=== PATIENT | female | born 1965 | race Two or more races ===

== ENCOUNTER 2020-05-11 14:12 | Outpatient (REF) | payer MEDICARE, MEDICAID, SELFPAY ==
[2020-05-11 15:54] LABS: TSH reflex Free T4 0.35 mIU/mL (0.32-4.0)
== END 2020-05-11 14:13 | disposition home or self-care (01) ==
LOC: HO.LAB 14:12
PROVIDERS: PCP Internal Medicine; Visit Provider Internal Medicine
DX: E06.3 Autoimmune thyroiditis (principal)
CPT/HCPCS: 84443

== ENCOUNTER 2020-09-09 15:52 | Outpatient (REF) | payer MEDICARE, MEDICAID, SELFPAY ==
[2020-09-09 16:58] LABS: TSH reflex Free T4 1.03 uIU/mL (0.32-4.0)
== END 2020-09-09 15:53 | disposition home or self-care (01) ==
LOC: HO.LAB 15:52
PROVIDERS: PCP Internal Medicine; Visit Provider Internal Medicine
DX: E03.9 Hypothyroidism, unspecified (principal)
CPT/HCPCS: 36415; 84443

== ENCOUNTER 2020-09-19 10:44 | Outpatient (REF) | payer MEDICARE, MEDICAID, SELFPAY ==
--- NOTE | ~2020-09-19 | XR_ITS ---
EXAMINATION: XR FOOT, RIGHT CLINICAL INFORMATION: Pain in right foot COMPARISON: None TECHNIQUE: AP, lateral, and oblique views of the right foot. FINDINGS: No acute fracture or dislocation. Joint spaces and articular surfaces are maintained. Moderate plantar calcaneal enthesophyte. Soft tissues unremarkable without evidence of radiopaque foreign body. XR/XR foot RT min 3V IMPRESSION: No acute fracture or dislocation. Moderate size plantar calcaneal enthesophyte.
== END 2020-09-19 10:45 | disposition home or self-care (01) ==
LOC: HO.XRAY 10:44
PROVIDERS: PCP Internal Medicine; Visit Provider Internal Medicine
DX: M79.671 Pain in right foot (principal)
CPT/HCPCS: 73630

== ENCOUNTER 2021-01-19 17:25 | Emergency (ER) | payer OTHER, MEDICARE, MEDICAID, SELFPAY ==
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
[2021-01-19 18:36] VITALS: BP 150/84; PULSE 78; RESP 18; TEMP 36.8; O2SAT 100; BMI 28.8
[2021-01-19] MEDS: Ibuprofen 600 MG TABLET PO (20:23)
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
== END 2021-01-20 01:06 | disposition home or self-care (01) ==
PROVIDERS: Emergency Provider Emergency Medicine; PCP Internal Medicine
DX: S13.4XXA Sprain of ligaments of cervical spine, initial encounter (principal); S29.012A Strain of muscle and tendon of back wall of thorax, initial encounter; V43.52XA Car driver injured in collision with other type car in traffic accident, initial encounter; Y93.89 Activity, other specified; Y92.414 Local residential or business street as the place of occurrence of the external cause; Y99.9 Unspecified external cause status
CPT/HCPCS: 72040; 72100; 73030; 99284

== ENCOUNTER 2021-01-24 12:02 | Outpatient (REF) | payer OTHER, SELFPAY ==
--- NOTE | ~2021-01-24 | XR_ITS ---
EXAMINATION: XR THORACOLUMBAR SPINE CLINICAL INFORMATION: Pain COMPARISON: Previous x-ray October 2015 TECHNIQUE: 3 views of the thoracic spine FINDINGS: There is mild curvature of the midthoracic spine to the right and lower thoracic spine to the left. Bone alignment is otherwise normal. No fracture or dislocation is seen. There is mild degenerative spondylosis and degenerative disc disease and the mid and lower thoracic spine, greatest at T11-T12. Paraspinal soft tissues are unremarkable. XR/XR thoracic spine 2V IMPRESSION: No fracture. Mild scoliosis and degenerative changes.
== END 2021-01-24 12:03 | disposition home or self-care (01) ==
LOC: HO.XRAY 12:02
PROVIDERS: PCP Internal Medicine; Visit Provider Internal Medicine
DX: M54.6 Pain in thoracic spine (principal)
CPT/HCPCS: 72070

== ENCOUNTER 2021-03-22 08:40 | Outpatient (REF) | payer MEDICARE, MEDICAID, SELFPAY ==
[2021-03-22 09:25] LABS: Alanine Aminotransferase 24 U/L (0-31); Alkaline Phosphatase 113 U/L (39-117); Anion Gap 10 (12-20); Aspartate Amino Transferase 25 U/L (5-31); Bilirubin Total 0.3 mg/dL (0.0-1.0); Blood Urea Nitrogen 12 mg/dL (9-16); Calcium 9.2 mg/dL (8.4-10.2); Carbon Dioxide 26 mmol/L (22-29); Chloride 109 mmol/L (96-108); Cholesterol 176 mg/dL; Estimated Glomerular Filt Rate > 60; Glucose Fasting 98 mg/dL (60-99); HDL Cholesterol 77 mg/dL; LDL Cholesterol Calculated 90 mg/dl; Potassium 4.1 mmol/L (3.3-5.1); Sodium 141 mmol/L (135-145); Total Protein 6.3 g/dL (6.5-8.0); Triglycerides 48 mg/dL
[2021-03-22 10:29] LABS: TSH reflex Free T4 0.68 uIU/mL (0.32-4.0)
[2021-03-28 14:41] LABS: Vitamin D 25-OH, D2 <4 ng/mL; Vitamin D 25-OH, D3 25 ng/mL; Vitamin D 25-OH, Total 25 ng/mL (30-100)
== END 2021-03-22 08:41 | disposition home or self-care (01) ==
LOC: HO.LAB 08:40
PROVIDERS: PCP Internal Medicine; Visit Provider Internal Medicine
DX: E78.5 Hyperlipidemia, unspecified (principal); M51.36 Other intervertebral disc degeneration, lumbar region; E06.3 Autoimmune thyroiditis; E55.9 Vitamin D deficiency, unspecified
CPT/HCPCS: 36415; 80053; 80061; 82306; 84443

== ENCOUNTER 2021-10-16 11:44 | Outpatient (REF) | payer MEDICARE, MEDICAID, SELFPAY ==
[2021-10-16 12:56] LABS: Syphilis Screen Nonreactive (Nonreactive)
[2021-10-16 13:01] LABS: Erythrocyte Sedimentation Rate 18 MM/HR (0-20)
[2021-10-18 01:51] LABS: Lyme Abs Screen <0.90 index
== END 2021-10-16 11:45 | disposition home or self-care (01) ==
LOC: HO.LAB 11:44
PROVIDERS: PCP Internal Medicine; Visit Provider Psychiatry & Neurology Neurology
DX: R51.9 Headache, unspecified (principal)
CPT/HCPCS: 36415; 85652; 86617; 86618; 86780

== ENCOUNTER 2021-11-29 15:52 | Outpatient (REF) | payer MEDICARE, MEDICAID, SELFPAY ==
[2021-11-29 17:33] LABS: Thyroid Stimulating Hormone 1.46 uIU/mL (0.32-4.0)
== END 2021-11-29 15:53 | disposition home or self-care (01) ==
LOC: HO.LAB 15:52
PROVIDERS: PCP Internal Medicine; Visit Provider Internal Medicine
DX: E06.3 Autoimmune thyroiditis (principal)
CPT/HCPCS: 36415; 84443

== ENCOUNTER 2022-03-20 08:58 | Outpatient (REF) | payer MEDICARE, MEDICAID, SELFPAY ==
[2022-03-20 09:17] LABS: MANUAL DIFF FLAG NO
[2022-03-20 09:37] LABS: Basophils Percent Auto 0.7 % (0-2); Eosinophils Absolute Auto 0.1 X10*3/uL (0.0-0.4); Eosinophils Percent Auto 3.1 % (0-4); Hematocrit 37.3 % (37.0-47.0); Hemoglobin 11.8 g/dl (12.0-16.0); Imm Gran Abs Auto 0.01 X10*3/uL (0.00-0.03); Imm Gran Pct Auto 0.2 % (0.0-0.4); Lymphocytes Absolute Auto 2.3 X10*3/uL (1.2-4.9); Mean Corpuscular HGB Conc 31.6 g/dl (31.0-35.0); Mean Corpuscular Hemoglobin 28.2 pg (27.0-33.0); Mean Corpuscular Volume 89.2 fL (80.0-98.0); Mean Platelet Volume 11.3 fL (9.4-12.3); Monocytes Absolute Auto 0.3 X10*3/uL (0.1-1.2); Monocytes Percent Auto 5.9 % (2-11); Neutrophils Absolute Auto 1.8 x10*3/uL (2.0-8.3); Neutrophils Percent Auto 39.1 % (45-73); Platelet Count 187 X10*3/uL (160-400); Red Blood Count 4.18 X10*6/uL (4.20-5.50); Red Cell Distribution Width 14.3 % (11.0-16.0); White Blood Count 4.6 X10*3/uL (4.8-10.8)
[2022-03-20 10:11] LABS: Alanine Aminotransferase 18 U/L (0-31); Albumin Level 4.2 g/dL (3.5-5.0); Alkaline Phosphatase 114 U/L (39-117); Anion Gap 12 (12-20); Aspartate Amino Transferase 23 U/L (5-31); Bilirubin Total 0.6 mg/dL (0.0-1.0); Blood Urea Nitrogen 17 mg/dL (9-16); Calcium 9.5 mg/dL (8.4-10.2); Carbon Dioxide 22 mmol/L (22-29); Chloride 111 mmol/L (96-108); Cholesterol 189 mg/dL; Estimated Glomerular Filt Rate > 60; Glucose Fasting 83 mg/dL (60-99); HDL Cholesterol 88 mg/dL; LDL Cholesterol Calculated 93 mg/dl; Potassium 4.4 mmol/L (3.3-5.1); Sodium 141 mmol/L (135-145); Total Protein 6.6 g/dL (6.5-8.0); Triglycerides 40 mg/dL
[2022-03-20 10:26] LABS: Thyroid Stimulating Hormone 1.32 uIU/mL (0.32-4.0); Vitamin D 25-OH Total 27.2 ng/mL (>30)
== END 2022-03-20 08:59 | disposition home or self-care (01) ==
LOC: HO.LAB 08:58
PROVIDERS: PCP Internal Medicine; Visit Provider Internal Medicine
DX: E55.9 Vitamin D deficiency, unspecified (principal); G43.909 Migraine, unspecified, not intractable, without status migrainosus; E06.3 Autoimmune thyroiditis; E78.5 Hyperlipidemia, unspecified
CPT/HCPCS: 36415; 80053; 80061; 82306; 84443; 85025

== ENCOUNTER 2022-05-16 10:00 | Outpatient (REF) | payer MEDICARE, MEDICAID, SELFPAY ==
--- NOTE | ~2022-05-16 | MM_ITS ---
EXAMINATION: MM SCREENING DIGITAL BREAST TOMOSYNTHESIS, BILATERAL CLINICAL INFORMATION: Screening. Asymptomatic. COMPARISON: Mammography: 12/18/2017, 07/27/2016, 07/17/2016 TECHNIQUE: Digital breast tomosynthesis is performed in both the craniocaudal and mediolateral oblique views along with computer-aided detection (CAD). Synthesized 2D images are generated from the tomosynthesis. FINDINGS: The breasts are heterogeneously dense, which may obscure small masses (ACR BI-RADS breast composition Category c). There are no significant masses, abnormal calcifications, or other abnormalities. Parenchymal pattern is similar to prior studies. No developing density or architectural abnormality. No significant changes. MM/MM tomosynthesis screening BI IMPRESSION: No mammographic evidence of malignancy. ASSESSMENT: BI-RADS 1: Negative RECOMMENDATION: Routine annual mammography screening. This patient's information was entered into a reminder system with a target due date for their next mammogram.
== END 2022-05-16 10:01 | disposition home or self-care (01) ==
LOC: HO.MAMMO 10:00
PROVIDERS: PCP Internal Medicine; Visit Provider Internal Medicine
DX: Z12.31 Encounter for screening mammogram for malignant neoplasm of breast (principal)
CPT/HCPCS: 77063; 77067

== ENCOUNTER 2022-07-26 09:08 | Outpatient (REF) | payer MEDICARE, MEDICAID, SELFPAY ==
[2022-07-26 09:16] LABS: MANUAL DIFF FLAG NO
[2022-07-26 09:29] LABS: Basophils Absolute Auto 0.1 X10*3/uL (0.0-0.2); Basophils Percent Auto 0.9 % (0-2); Eosinophils Absolute Auto 0.1 X10*3/uL (0.0-0.4); Eosinophils Percent Auto 2.1 % (0-4); Hematocrit 37.7 % (37.0-47.0); Hemoglobin 11.8 g/dl (12.0-16.0); Imm Gran Abs Auto 0.01 X10*3/uL (0.00-0.03); Imm Gran Pct Auto 0.2 % (0.0-0.4); Lymphocytes Absolute Auto 1.9 X10*3/uL (1.2-4.9); Lymphocytes Percent Auto 35.8 % (20-40); Mean Corpuscular HGB Conc 31.3 g/dl (31.0-35.0); Mean Corpuscular Hemoglobin 28.2 pg (27.0-33.0); Mean Platelet Volume 11.5 fL (9.4-12.3); Monocytes Absolute Auto 0.3 X10*3/uL (0.1-1.2); Neutrophils Absolute Auto 2.9 x10*3/uL (2.0-8.3); Platelet Count 203 X10*3/uL (160-400); Red Blood Count 4.19 X10*6/uL (4.20-5.50); Red Cell Distribution Width 14.4 % (11.0-16.0); White Blood Count 5.3 X10*3/uL (4.8-10.8)
[2022-07-26 10:17] LABS: Thyroid Stimulating Hormone 1.46 uIU/mL (0.32-4.0)
== END 2022-07-26 09:09 | disposition home or self-care (01) ==
LOC: HO.LAB 09:08
PROVIDERS: PCP Internal Medicine; Visit Provider Internal Medicine
DX: E06.3 Autoimmune thyroiditis (principal); D64.9 Anemia, unspecified
CPT/HCPCS: 36415; 84443; 85025

== ENCOUNTER 2022-09-18 09:04 | Emergency (ER) | payer MEDICARE, MEDICAID, SELFPAY ==
--- NOTE | ~2022-09-18 | XR_ITS ---
EXAMINATION: XR CHEST CLINICAL INFORMATION: Chest and back pain. COMPARISON: None available. TECHNIQUE: 2 views of the chest were obtained. FINDINGS: No significant abnormality is noted involving the heart, lungs, mediastinum, bony thorax or soft tissues. XR/XR chest 2V IMPRESSION: No acute cardiopulmonary process.
--- NOTE | 2022-09-18 09:09 | ECG_ITS ---
Test Reason : CP Blood Pressure : / mmHG Vent. Rate : 064 BPM Atrial Rate : 064 BPM P-R Int : 146 ms QRS Dur : 072 ms QT Int : 386 ms P-R-T Axes : 067 011 038 degrees QTc Int : 398 ms Normal sinus rhythm Normal ECG When compared with ECG of 17-JAN-2016 18:06, No significant change was found Referred By: Generic ED Physician Electronically Signed By:DAMIAN CROUCH MD
[2022-09-18 09:10] VITALS: BP 140/76; PULSE 69; RESP 19; TEMP 36.1; O2SAT 96; BMI 27.4
[2022-09-18 09:49] LABS: MANUAL DIFF FLAG NO
[2022-09-18 09:51] LABS: Basophils Percent Auto 0.8 % (0-2); Eosinophils Absolute Auto 0.1 X10*3/uL (0.0-0.4); Eosinophils Percent Auto 2.3 % (0-4); Hematocrit 38.9 % (37.0-47.0); Hemoglobin 12.2 g/dl (12.0-16.0); Imm Gran Abs Auto 0.01 X10*3/uL (0.00-0.03); Imm Gran Pct Auto 0.2 % (0.0-0.4); Lymphocytes Percent Auto 40.7 % (20-40); Mean Corpuscular HGB Conc 31.4 g/dl (31.0-35.0); Mean Corpuscular Volume 89.4 fL (80.0-98.0); Mean Platelet Volume 11.5 fL (9.4-12.3); Monocytes Absolute Auto 0.3 X10*3/uL (0.1-1.2); Monocytes Percent Auto 6.9 % (2-11); Neutrophils Absolute Auto 2.4 x10*3/uL (2.0-8.3); Neutrophils Percent Auto 49.1 % (45-73); Platelet Count 191 X10*3/uL (160-400); Red Blood Count 4.35 X10*6/uL (4.20-5.50); Red Cell Distribution Width 14.2 % (11.0-16.0); White Blood Count 4.8 X10*3/uL (4.8-10.8)
[2022-09-18 09:53] VITALS: BP 128/74; PULSE 73; RESP 17; O2SAT 99
--- NOTE | 2022-09-18 09:59 | PC.NURSE ---
Patient resting on stretcher. Stating that she has had pain for the few weeks and started to get chest pain as well. Called PCP who advised her to come in to ED to be evaluated. Pain is in the lower back and substernally; patient having no shortness of breath associated with the pain.
[2022-09-18 10:16] LABS: Alanine Aminotransferase 29 U/L (0-31); Albumin Level 4.1 g/dL (3.5-5.0); Alkaline Phosphatase 121 U/L (39-117); Anion Gap 11 (12-20); Aspartate Amino Transferase 30 U/L (5-31); Bilirubin Direct 0.2 mg/dL (0.0-0.5); Bilirubin Total 0.6 mg/dL (0.0-1.0); Blood Urea Nitrogen 18 mg/dL (9-16); Calcium 9.2 mg/dL (8.4-10.2); Carbon Dioxide 23 mmol/L (22-29); Chloride 111 mmol/L (96-108); Creatinine Clr Calc Pharmacy 91.5; Estimated Glomerular Filt Rate > 60; Glucose Random 86 mg/dL (60-115); Lipase 28 U/L (8-78); Potassium 4.6 mmol/L (3.3-5.1); Sodium 140 mmol/L (135-145); Total Protein 6.6 g/dL (6.5-8.0)
[2022-09-18 10:25] LABS: Troponin-I High Sensitivity < 3.5 ng/L (<3.5-17.0)
--- NOTE | 2022-09-18 10:30 | ED_ITS ---
HPI - General Adult General Chief complaint: General Medical Stated complaint: chest pain/ back pain Time Seen by Provider: 09/18/22 10:11 Source: patient Mode of arrival: ambulatory Limitations: no limitations History of Present Illness HPI narrative: 57-year-old female with history of hypothyroidism, GERD who presents to the ER with complaints of acute on chronic back pain for the last 3 weeks. Patient reports she was shoveling last week and felt pain in her left chest. Since then she has had pain in both her left chest and her left upper back. Patient denies any associated shortness of breath, dizziness, palpitations, fever, cough, leg swelling, leg pain. No recent illnesses. No vomiting or diarrhea or abdominal pain. Pain is worsened with palpation and breathing. Pain not worsened with exertion. No OCP or estrogen use. Related Data Previous Rx's Medication Instructions Recorded sumatriptan succinate 50 mg tablet 50 mg PO BID PRN migraine headache 07/05/21 30 days #12 tabs omeprazole 40 mg capsule,delayed 40 mg PO DAILY 90 days #90 caps 11/30/21 release duloxetine 30 mg capsule,delayed 60 mg PO DAILY 90 days #180 caps 03/27/22 release topiramate 50 mg tablet 50 mg PO BID 90 days #180 tabs 03/27/22 tramadol 50 mg tablet 50 mg PO DAILY 30 days #30 tabs 03/27/22 levothyroxine 112 mcg tablet 112 mcg PO QAM #90 tabs 07/10/22 naproxen 500 mg tablet 500 mg PO Q12H PRN pain 90 days 08/12/22 #180 tabs baclofen 10 mg tablet 10 mg PO TID #90 tabs 09/17/22 cyclobenzaprine 10 mg tablet 10 mg PO TID PRN muscle spasm #15 09/18/22 tabs ibuprofen 600 mg tablet 600 mg PO Q8H PRN pain #30 tabs 09/18/22 Allergies Allergy/AdvReac Type Severity Reaction Status Date / Time No Known Allergies Allergy Verified 08/02/22 10:24 [No Known Allergies*] Review of Systems Review of Systems: Yes all other systems are reviewed and are negative Constitutional: Constitutional: Reports no additional constitutional complaints, Denies body ache(s), Denies chills, Denies fever(s), Denies headache(s) and Denies weakness Eyes: Eyes: Reports no additional eye complaints and Denies change in vision ENT: Reports system reviewed and no additional complaints, except as documented, Denies dizziness, Denies headache(s), Denies nasal congestion, Denies nasal discharge and Denies neck pain Cardiovascular: Cardiovascular: Reports no additional cardiovascular complaints, Reports chest pain, Denies leg edema and Denies dyspnea Respiratory: Respiratory: Reports no additional respiratory complaints, Denies cough and Denies dyspnea Gastrointestinal: Gastrointestinal: Reports no additional gastrointestinal complaints, Denies abdominal pain, Denies diarrhea, Denies nausea and Denies vomiting Genitourinary: Genitourinary: Reports no additional female genitourinary complaints and Denies urinary incontinence Musculoskeletal: Musculoskeletal: Reports no additional musculoskeletal complaints, Reports back pain, Denies arthralgias, Denies joint swelling, Denies neck pain, Denies numbness and Denies tingling Integumentary/Breasts: Skin/Breast: Reports system reviewed and no additional complaints, except as docu and Denies rash Neurologic: Reports system reviewed and no additional complaints, except as do cumented, Denies dizziness, Denies headache(s), Denies numbness, Denies tingling and Denies weakness [facility] Past Medical History Attestation statement: The following information was validated with the patient. Source: old records reviewed and nursing notes reviewed Medical History Autoimmune thyroiditis GERD (gastroesophageal reflux disease) Left shoulder pain Lumbar degenerative disc disease Migraines Mild recurrent major depression Neck pain Right foot pain Thoracic spine pain Surgical History History of laminectomy History of tonsillectomy History of tubal ligation Family History Family History Father Heart problem CVD (cardiovascular disease) Mother Heart problem Acute kidney failure Hypertension CVD (cardiovascular disease) Sister Hypertension Brother Heart problem Social History Social History Housing: Apartment Alcohol intake: current Alcohol intake frequency: holidays/special occasions only Alcohol type: beer Patient Tobacco Use Status: Current everyday Tobacco user Tobacco use type: Cigarette Cigarettes Per Day: 4 Smoked in Last 30 Days: Yes e-Cigarette/Vaping Use: Never Used Second Hand Smoke Exposure: No Use of substances other than those prescribed or required for medical reasons: No Advance Directives: No Advance Directives Information Provided: Yes service: No Current occupational status: disabled Cognitive needs: No Hearing needs: No Vision needs: No Physical Exam ED Vital Signs: Vital Signs - 24 hr 09/18/22 09:10 09/18/22 09:53 09/18/22 13:06 Temperature 97 F Pulse Rate 69 73 61 Respiratory Rate 19 17 18 Blood Pressure 140/76 H 128/74 136/80 Pulse Oximetry 96 99 100 Oxygen Delivery Method Room Air Room Air Room Air BMI result Body Mass Index 27.4 Const General: cooperative, healthy appearing, comfortable and no acute distress Orientation/consciousness: patient oriented x3 Limitations: no limitations HENMT Head: Yes normal to inspection Ears: hearing grossly normal bilaterally Eyes General: appearance normal, both eyes and all related structures Pupils: Equal, round and reactive pupils present Neck Neck: Yes normal visual inspection and Yes full ROM Chest Chest palpation & inspection: normal inspection of the chest Chest/axillae images: 1. Tenderness on palpation Resp Effort & Inspection: normal respiratory effort Auscultation: clear to auscultation bilaterally Cardio Rate: regular rate Rhythm: regular rhythm Peripheral pulses: Peripheral pulses 2+ throughout GI Inspection: Yes normal to inspection Palpation (GI): Soft to palpation and nontender General: Yes no CVA tenderness Back/Spine/Pelvis Back: no CVA tenderness Back/spine/pelvis image: 1. Mild tenderness to palpation Skin General skin exam: no rashes or lesions noted Neuro General: patient oriented x3 and moves all extremities Cranial nerves: Yes Equal, round and reactive pupils present Cognition (Neuro): normal cognition Gait exam (Neuro): Normal gait present Extrem General: Yes normal to inspection, Yes no pedal edema and Yes no calf tenderness Course Course Course Narrative: Labs are unremarkable. EKG shows no ischemic changes. Chest x-ray is negative for infection. Low concern for ACS with symptoms for several weeks with a normal troponin and EKG. Low concern for PE with negative D-dimer, perc of 0. Low concern for dissection. Likely chest wall strain. Plan for discharge home. Reviewed worrisome signs and symptoms of when to return to the emergency room. Comfortable plan for discharge home Medications Administered Discontinued Medications Generic Name Dose Route Start Last Admin Trade Name Freq PRN Reason Stop Dose Admin Ketorolac Tromethamine 15 mg 09/18/22 10:28 09/18/22 10:51 Ketorolac Tromethamine 15 Mg/Ml Vial IVPUSH 09/18/22 10:29 15 mg ONCE ONE Administration Medical Decision Making Medical Decision Making [facility] Narrative: 57-year-old female with a history of GERD, chronic back pain, hypothyroidism, tobacco smoking presents to the ER with acute on chronic back pain for the last 3 weeks with left chest discomfort which began after shoveling snow last week. Pain is worsened with palpation and breathing. Not exertional. No other associated symptoms. On exam tenderness to palpation of the left chest wall and left upper back. Likely musculoskeletal. Will obtain labs, EKG, chest X, COVID screen Differential Diagnosis Differential Diagnoses: The differential diagnosis associated with the presentation includes Chest wall strain, PE, ACS, pneumonia, dissect Lab Data [facility] Lab Attestation statement: I reviewed the patient's lab results. 09/18/22 09:42 09/18/22 09:42 Labs: Lab Results 09/18/22 09/18/22 09/18/22 Range/Units 09:41 09:42 09:42 WBC 4.8 (4.8-10.8) X10*3/uL RBC 4.35 (4.20-5.50) X10*6/uL Hgb 12.2 (12.0-16.0) g/dl Hct 38.9 (37.0-47.0) % MCV 89.4 (80.0-98.0) fL MCH 28.0 (27.0-33.0) pg MCHC 31.4 (31.0-35.0) g/dl RDW 14.2 (11.0-16.0) % Plt Count 191 (160-400) X10*3/uL MPV 11.5 (9.4-12.3) fL Immature Gran % (Auto) 0.2 (0.0-0.4) % Neut % (Auto) 49.1 (45-73) % Lymph % (Auto) 40.7 H (20-40) % Jennings % (Auto) 6.9 (2-11) % Eos % (Auto) 2.3 (0-4) % Baso % (Auto) 0.8 (0-2) % Lymph # (Auto) 2.0 (1.2-4.9) X10*3/uL Jennings # (Auto) 0.3 (0.1-1.2) X10*3/uL Eos # (Auto) 0.1 (0.0-0.4) X10*3/uL Baso # (Auto) 0.0 (0.0-0.2) X10*3/uL Abs Immat Gran (auto) 0.01 (0.00-0.03) X10*3/uL Absolute Neuts (auto) 2.4 (2.0-8.3) x10*3/uL Absolute Nucleated RBC 0.000 (0.0-0.012) X10*3/uL Nucleated RBC % (auto) 0.0 (0.0-0.2) /100WBC PT (10.0-13.1) SEC INR (0.9-1.1) D-Dimer High Sensitivty NG/ML Sodium 140 (135-145) mmol/L Potassium 4.6 (3.3-5.1) mmol/L Chloride 111 H (96-108) mmol/L Carbon Dioxide 23 (22-29) mmol/L Anion Gap 11 L (12-20) BUN 18 H (9-16) mg/dL Creatinine 0.67 (0.5-1.4) mg/dL Estim Creat Clear Calc 91.5 Estimated GFR > 60 Random Glucose 86 (60-115) mg/dL Calcium 9.2 (8.4-10.2) mg/dL Total Bilirubin 0.6 (0.0-1.0) mg/dL Direct Bilirubin 0.2 (0.0-0.5) mg/dL AST 30 (5-31) U/L ALT 29 (0-31) U/L Alkaline Phosphatase 121 H (39-117) U/L Troponin I High Sens < 3.5 (<3.5-17.0) ng/L Total Protein 6.6 (6.5-8.0) g/dL Albumin 4.1 (3.5-5.0) g/dL Lipase 28 (8-78) U/L COVID-19 ([facility]) (Negative) COVID-19 Clin Com 09/18/22 09/18/22 Range/Units 11:28 11:28 WBC (4.8-10.8) X10*3/uL RBC (4.20-5.50) X10*6/uL Hgb (12.0-16.0) g/dl Hct (37.0-47.0) % MCV (80.0-98.0) fL MCH (27.0-33.0) pg MCHC (31.0-35.0) g/dl RDW (11.0-16.0) % Plt Count (160-400) X10*3/uL MPV (9.4-12.3) fL Immature Gran % (Auto) (0.0-0.4) % Neut % (Auto) (45-73) % Lymph % (Auto) (20-40) % Jennings % (Auto) (2-11) % Eos % (Auto) (0-4) % Baso % (Auto) (0-2) % Lymph # (Auto) (1.2-4.9) X10*3/uL Jennings # (Auto) (0.1-1.2) X10*3/uL Eos # (Auto) (0.0-0.4) X10*3/uL Baso # (Auto) (0.0-0.2) X10*3/uL Abs Immat Gran (auto) (0.00-0.03) X10*3/uL Absolute Neuts (auto) (2.0-8.3) x10*3/uL Absolute Nucleated RBC (0.0-0.012) X10*3/uL Nucleated RBC % (auto) (0.0-0.2) /100WBC PT 11.8 (10.0-13.1) SEC INR 1.0 (0.9-1.1) D-Dimer High Sensitivty < 150 NG/ML Sodium (135-145) mmol/L Potassium (3.3-5.1) mmol/L Chloride (96-108) mmol/L Carbon Dioxide (22-29) mmol/L Anion Gap (12-20) BUN (9-16) mg/dL Creatinine (0.5-1.4) mg/dL Estim Creat Clear Calc Estimated GFR Random Glucose (60-115) mg/dL Calcium (8.4-10.2) mg/dL Total Bilirubin (0.0-1.0) mg/dL Direct Bilirubin (0.0-0.5) mg/dL AST (5-31) U/L ALT (0-31) U/L Alkaline Phosphatase (39-117) U/L Troponin I High Sens (<3.5-17.0) ng/L Total Protein (6.5-8.0) g/dL Albumin (3.5-5.0) g/dL Lipase (8-78) U/L COVID-19 ([facility]) Negative (Negative) COVID-19 Clin Com See Note Independent Interpretation I performed an independent interpretation of an: EKG and Plain X-Ray Interpretation: I independently reviewed the EKG which she which shows normal sinus rhythm with a rate of 64, normal CO, normal QRS, normal QT I independently reviewed the chest x-ray and agree with radiologist's report Radiology Impression Discussion of test interpretation with radiology: I have reviewed the radiologist's reading. Discharge Plan Discharge Clinical Impression: Chest wall muscle strain Patient Disposition: Home, Self-Care Instructions: Muscle Strain (ED), Chest Wall Pain (ED) Additional Instructions: Your blood work, EKG and chest x-ray are all reassuring Your COVID test is negative Please follow-up with primary care doctor for any continued symptoms Return to the ER for any worsening symptoms Prescriptions: New cyclobenzaprine 10 mg tablet 10 mg PO TID PRN (Reason: muscle spasm) Qty: 15 0RF ibuprofen 600 mg tablet 600 mg PO Q8H PRN (Reason: pain) Qty: 30 0RF No Action sumatriptan succinate 50 mg tablet 50 mg PO BID PRN (Reason: migraine headache) 30 Days Qty: 12 2RF duloxetine 30 mg capsule,delayed release(DR/EC) 60 mg PO DAILY 90 Days Qty: 180 3RF tramadol 50 mg tablet 50 mg PO DAILY 30 Days Qty: 30 0RF topiramate 50 mg tablet 50 mg PO BID 90 Days Qty: 180 0RF levothyroxine 112 mcg tablet 112 mcg PO QAM Qty: 90 1RF naproxen 500 mg tablet 500 mg PO Q12H PRN (Reason: pain) 90 Days Qty: 180 0RF baclofen 10 mg tablet 10 mg PO TID Qty: 90 3RF omeprazole 40 mg capsule,delayed release(DR/EC) 40 mg PO DAILY 90 Days Qty: 90 3RF Referrals: Kathrine España MD [Primary Care Provider] - 1 week Interventions: ED Discharge Assessment Last Done: 09/18/22 13:08 Discharge Date/Time: 09/18/22 13:08
[2022-09-18] MEDS: Ketorolac Tromethamine 15 MG/ML VIAL IVPUSH (10:51)
[2022-09-18 11:38] LABS: Prothrombin Time 11.8 SEC (10.0-13.1)
[2022-09-18 11:47] LABS: D Dimer High Sensitivity < 150 NG/ML
[2022-09-18 11:48] LABS: COVID-19 Test Negative (Negative); IDNOW Serial# 08D9AD1C
[2022-09-18 13:06] VITALS: BP 136/80; PULSE 61; RESP 18; O2SAT 100
== END 2022-09-18 13:08 | disposition home or self-care (01) ==
PROVIDERS: Nurse Practitioner Family; Emergency Provider Emergency Medicine; PCP Internal Medicine
DX: R07.89 Other chest pain (principal); M54.2 Cervicalgia; Z20.822 Contact with and (suspected) exposure to COVID-19; Z20.828 Contact with and (suspected) exposure to other viral communicable diseases; Z79.899 Other long term (current) drug therapy
CPT/HCPCS: 36415; 71046; 80048; 80076; 83690; 84484; 85025; 85379; 85610; 87635; 93005; 96374; 99284; J1885

== ENCOUNTER 2022-11-29 13:32 | Outpatient (REF) | payer MEDICARE, MEDICAID, SELFPAY ==
[2022-11-29 15:31] LABS: Thyroid Stimulating Hormone 1.47 uIU/mL (0.32-4.0)
== END 2022-11-29 13:33 | disposition home or self-care (01) ==
LOC: HO.LAB 13:32
PROVIDERS: PCP Internal Medicine; Visit Provider Internal Medicine
DX: E06.3 Autoimmune thyroiditis (principal)
CPT/HCPCS: 36415; 84443

== ENCOUNTER 2023-03-26 08:50 | Outpatient (REF) | payer MEDICARE, MEDICAID, SELFPAY ==
[2023-03-26 09:11] LABS: MANUAL DIFF FLAG NO
[2023-03-26 09:53] LABS: Basophils Percent Auto 0.7 % (0-2); Eosinophils Absolute Auto 0.2 X10*3/uL (0.0-0.4); Eosinophils Percent Auto 3.3 % (0-4); Hematocrit 40.6 % (37.0-47.0); Hemoglobin 12.7 g/dl (12.0-16.0); Imm Gran Abs Auto 0.01 X10*3/uL (0.00-0.03); Imm Gran Pct Auto 0.2 % (0.0-0.4); Lymphocytes Absolute Auto 1.8 X10*3/uL (1.2-4.9); Lymphocytes Percent Auto 39.7 % (20-40); Mean Corpuscular HGB Conc 31.3 g/dl (31.0-35.0); Mean Corpuscular Hemoglobin 28.5 pg (27.0-33.0); Mean Platelet Volume 11.6 fL (9.4-12.3); Monocytes Absolute Auto 0.3 X10*3/uL (0.1-1.2); Monocytes Percent Auto 5.7 % (2-11); Neutrophils Absolute Auto 2.3 x10*3/uL (2.0-8.3); Neutrophils Percent Auto 50.4 % (45-73); Platelet Count 204 X10*3/uL (160-400); Red Blood Count 4.46 X10*6/uL (4.20-5.50); Red Cell Distribution Width 14.3 % (11.0-16.0); White Blood Count 4.6 X10*3/uL (4.8-10.8)
[2023-03-26 10:12] LABS: Alanine Aminotransferase 15 U/L (0-31); Albumin Level 4.3 g/dL (3.5-5.0); Alkaline Phosphatase 111 U/L (39-117); Anion Gap 15 (12-20); Aspartate Amino Transferase 18 U/L (5-31); Bilirubin Total 0.5 mg/dL (0.0-1.0); Blood Urea Nitrogen 17 mg/dL (9-16); Calcium 9.5 mg/dL (8.4-10.2); Carbon Dioxide 20 mmol/L (22-29); Chloride 113 mmol/L (96-108); Cholesterol 201 mg/dL (<200); Estimated Glomerular Filt Rate > 60; Glucose Fasting 98 mg/dL (60-99); HDL Cholesterol 93 mg/dL (>40); LDL Cholesterol Calculated 98 mg/dL (<100); Potassium 4.7 mmol/L (3.3-5.1); Sodium 143 mmol/L (135-145); Triglycerides 51 mg/dL (<150)
[2023-03-26 10:31] LABS: Thyroid Stimulating Hormone 1.97 uIU/mL (0.32-4.0)
== END 2023-03-26 08:51 | disposition home or self-care (01) ==
LOC: HO.LAB 08:50
PROVIDERS: PCP Internal Medicine; Visit Provider Internal Medicine
DX: Z00.00 Encounter for general adult medical examination without abnormal findings (principal); G43.909 Migraine, unspecified, not intractable, without status migrainosus; E06.3 Autoimmune thyroiditis; E78.5 Hyperlipidemia, unspecified
CPT/HCPCS: 36415; 80053; 80061; 84443; 85025

== ENCOUNTER 2023-04-03 09:19 | Outpatient (AMB) | payer MEDICARE, MEDICAID, SELFPAY ==
[2023-04-03 09:21] VITALS: BP 122/80; BMI 29.0
--- NOTE | 2023-04-03 09:21 | MHC.PC.OV ---
Vital Signs 04/03/23 09:21 Height 5 ft 4 in Weight 169 lb BMI 29.0 BP 122/80 Blood Pressure Location Lt brachial Position Sitting Intake Visit Reasons: Annual Exam Intake Note: Patient here for an annual physical exam Balloon Dipper Required: No Accompanied by: Self / Same As Patient Allergies No Known Allergies [No Known Allergies*] Allergy (Verified 04/03/23 09:32) Medication List - Last Reconciled 04/03/23 by Kathrine Zeng MD baclofen 10 mg PO TID duloxetine 60 mg (2 x 30 mg) PO DAILY 90 days ibuprofen 600 mg PO Q8H PRN levothyroxine 112 mcg PO QAM naproxen 500 mg PO Q12H PRN 90 days omeprazole 40 mg PO DAILY 90 days sumatriptan succinate 50 mg PO BID PRN 30 days topiramate 50 mg PO BID 90 days tramadol 50 mg PO DAILY 30 days Tobacco use date assessed: 08/02/22 Dental Screening Dental Screen Date: 04/03/23 Did you have a dental visit in the last 12 months?: Yes Did you have a dental problem in the last 6 months where you did not have access to dental care?: No Was dental information given to patient?: Patient has dentist HPI HPI Comments History of Present Illness Details This is a 58-year-old woman with mild recurrent major depression that comes for her physical exam. Depression stable with duloxetine. Last mammogram was last year and was normal. She declines Pap smear and colonoscopy but is willing to do Cologuard. Complains of some hair loss and weight gain due to increase in appetite but her TSH is normal. Has elevated cholesterol but her [place] risk score is 1.9% chance of having a heart attack or stroke in the next 10 years. [facility] Medical History (Updated 12/03/22 @ 11:58 by Kathrine Zeng MD) Mild recurrent major depression Thoracic spine pain Left shoulder pain Neck pain Migraines Right foot pain GERD (gastroesophageal reflux disease) Lumbar degenerative disc disease Autoimmune thyroiditis Surgical History History of laminectomy History of tubal ligation History of tonsillectomy Family History Father Heart problem CVD (cardiovascular disease) Mother Heart problem Acute kidney failure Hypertension CVD (cardiovascular disease) Sister Hypertension Brother Heart problem Social History Housing: Apartment Alcohol intake: current Alcohol intake frequency: holidays/special occasions only Alcohol type: beer Patient Tobacco Use Status: Current everyday Tobacco user Tobacco use type: Cigarette Cigarettes Per Day: 4 e-Cigarette/Vaping Use: Never Used Second Hand Smoke Exposure: No service: No Current occupational status: disabled Cognitive needs: No Hearing needs: No Vision needs: No Questionnaire Thrive Questionnaire Date Thrive assessed: 08/02/22 VICENTE-7 AMB Questionnaire VICENTE-7 Date VICENTE - 7 assessed: 08/02/22 Source: Developed by Drs. David Perry, Lissett Long, Dayo Salgado and colleagues, with an educational maurice from [employer]. Review of Systems Const All systems reviewed & are unremarkable except as noted in HPI and below Eyes Reports no additional complaints, Denies change in vision and Denies other visual disturbances Card Denies chest pain at rest, Denies chest pain with activity, Denies edema, Denies irregular heart rhythm, Denies claudication, Denies dyspnea, Denies dyspnea on exertion, Denies orthopnea, Denies paroxysmal nocturnal dyspnea and Denies slow heart rate Resp Denies cough, Denies dyspnea and Denies dyspnea on exertion GI Denies abdominal pain, Denies change in bowel habits, Denies excessive flatus, Denies nausea and Denies vomiting Denies urinary incontinence, Denies urinary hesitancy and Denies urinary urgency Musc Denies abnormal gait, Denies atrophy, Denies deformity and Denies limited range of motion Skin/Breast Denies bleeding lesions, Denies changing lesions and Denies rash Neuro Denies abnormal gait and Denies lack of coordination Physical exam (Primary Care) Vital Signs: Last Vital Signs BP 122/80 04/03/23 09:21 BMI result Body Mass Index 29.0 Tobacco/Smoking Status: Tobacco use Status Tobacco use date assessed 08/02/22 04/03/23 09:23 Patient Tobacco Use Status Current everyday Tobacco 04/03/23 09:23 Tobacco use type Cigarette 04/03/23 09:23 e-Cigarette/Vaping Use Never Used 04/03/23 09:23 Thrive Assessment: Date of Thrive Assessment Date Thrive assessed 08/02/22 04/03/23 09:23 Const Orientation/consciousness: patient oriented x3 HENMT Head: Yes normal to inspection, Yes normocephalic and Yes atraumatic Ears: external ears normal Eyes General: appearance normal, both eyes and all related structures Eyelids: Yes eyelids normal Conjunctivae: conjunctivae normal Neck Neck: Yes normal visual inspection and Yes supple Resp Effort & Inspection: normal respiratory effort Auscultation: clear to auscultation bilaterally Cardio Jugular venous distension: no JVD Rate: regular rate Rhythm: regular rhythm Heart sounds: S1 normal heart sound present and S2 normal heart sound present GI Inspection: Yes normal to inspection Palpation (GI): Soft to palpation and nontender Auscultation: normal bowel sounds Skin General skin exam: no rashes or lesions noted Neuro General: patient oriented x3 and no focal motor deficits Extrem General: Yes full ROM Psych Appearance: grossly normal Office Procedures Flu Questionnaire Does the patient have a severe egg allergy?: No Immunizations flu vacc [id number] 6mos up(PF) 60 mcg(15 mcgx4)/0.5 mL IM syringe Performing Provider: Kathrine Zeng MD [facility] Documented (not given) by: LASHA Mattson on 04/03/23 09:27 Reason Not Given: Patient Refused Assessment and Plan Assessment & Plan (1) Physical exam: Code(s): Z00.00 - Encounter for general adult medical examination without abnormal findings Plan: Repeat in a year. (2) Mild recurrent major depression: Code(s): F33.0 - Major depressive disorder, recurrent, mild Plan: Continue duloxetine. Orders: Orders Influenza [id number] Immunization Today Z23 - Encounter for immunization Thyroid Stimulating Hormone 6 Months E06.3 - Autoimmune thyroiditis Referrals Cologuard Test Z12.11 - Encounter for screening for malignant neoplasm of colon, Z12.12 - Encounter for screening for malignant neoplasm of rectum Medications: Refilled tramadol 50 mg PO DAILY 30 days 30 tabs 0RF Coding Level of Care Code Est Pt Prev Care 40-64y(12238) Diagnoses Physical exam Z00.00 Mild recurrent major depression F33.0 Time Spent (min) 32
== END 2023-04-03 09:49 | disposition home or self-care (01) ==
PROVIDERS: PCP Internal Medicine; Visit Provider Internal Medicine
DX: Z00.00 Encounter for general adult medical examination without abnormal findings (principal); F33.0 Major depressive disorder, recurrent, mild
CPT/HCPCS: 99396

== ENCOUNTER 2023-06-17 12:37 | Outpatient (REF) | payer MEDICARE, MEDICAID, SELFPAY | END 2023-06-17 12:38 | disposition home or self-care (01) | LOC: HO.MAMMO 12:37 | PROVIDERS: PCP Internal Medicine; Visit Provider Internal Medicine | DX: Z12.31 Encounter for screening mammogram for malignant neoplasm of breast (principal) | CPT/HCPCS: 77063; 77067 ==

== ENCOUNTER → 2023-06-17 12:45 | Outpatient (BNV) | payer MEDICARE, MEDICAID, SELFPAY | PROVIDERS: PCP Internal Medicine; Visit Provider Radiology Diagnostic Radiology | DX: Z12.31 Encounter for screening mammogram for malignant neoplasm of breast (principal) | CPT/HCPCS: 77063; 77067 ==

== ENCOUNTER 2023-09-26 09:14 | Outpatient (REF) | payer OTHER, SELFPAY ==
[2023-09-26 10:30] LABS: Thyroid Stimulating Hormone 5.35 uIU/mL (0.32-4.0)
== END 2023-09-26 09:15 | disposition home or self-care (01) ==
LOC: HO.LAB 09:14
PROVIDERS: PCP Internal Medicine; Visit Provider Internal Medicine
DX: E06.3 Autoimmune thyroiditis (principal)
CPT/HCPCS: 36415; 84443

== ENCOUNTER 2023-10-03 09:50 | Outpatient (AMB) | payer OTHER, MEDICAID, SELFPAY ==
--- NOTE | 2023-10-03 09:56 | MHC.PC.OV ---
Vital Signs 10/03/23 10:00 Height 5 ft 4 in Weight 171 lb BMI 29.3 BP 122/80 Blood Pressure Location Lt brachial Position Sitting Intake Visit Reasons: thyroid Intake Note: Patient here for a follow up thyroid [employer] Officer Required: No Accompanied by: Self / Same As Patient Allergies No Known Allergies [No Known Allergies*] Allergy (Verified 10/03/23 10:19) Medication List - Last Reconciled 10/03/23 by Kathrine Zeng MD baclofen 10 mg PO TID duloxetine 60 mg (2 x 30 mg) PO DAILY 90 days ibuprofen 600 mg PO Q8H PRN levothyroxine 112 mcg PO QAM naproxen 500 mg PO Q12H PRN 90 days omeprazole 40 mg PO DAILY 90 days sumatriptan succinate 50 mg PO BID PRN 30 days topiramate 50 mg PO BID 90 days tramadol 50 mg PO DAILY 30 days Tobacco use date assessed: 10/03/23 Dental Screening Dental Screen Date: 10/03/23 Did you have a dental visit in the last 12 months?: Yes Did you have a dental problem in the last 6 months where you did not have access to dental care?: No Was dental information given to patient?: Patient has dentist HPI HPI Comments History of Present Illness Details This is a 58-year-old female with mild recurrent major depression, fibromyalgia, autoimmune thyroiditis, GERD and migraines that comes today for follow-up on her conditions. Depression and fibromyalgia has been stable with duloxetine. TSH is elevated and I will increase levothyroxine from 112 mcg to 125 mcg. TSH will be repeated in 6 weeks and patient is aware. GERD stable with PPIs. On sumatriptan for acute migraine attacks. Patient is also taking Topamax for migraine prophylaxis. Has been having less migraine attacks and less intense with Topamax. Denies any chest pain or shortness of breath. Complains of fatigue and tiredness. [facility] Medical History Mild recurrent major depression Thoracic spine pain Left shoulder pain Neck pain Migraines Right foot pain GERD (gastroesophageal reflux disease) Lumbar degenerative disc disease Autoimmune thyroiditis Surgical History History of laminectomy History of tubal ligation History of tonsillectomy Family History Father Heart problem CVD (cardiovascular disease) Mother Heart problem Acute kidney failure Hypertension CVD (cardiovascular disease) Sister Hypertension Brother Heart problem Social History Housing: Apartment Alcohol intake: current Alcohol intake frequency: holidays/special occasions only Alcohol type: beer Patient Tobacco Use Status: Current everyday Tobacco user Tobacco use type: Cigarette Cigarettes Per Day: 4 e-Cigarette/Vaping Use: Never Used Second Hand Smoke Exposure: No service: No Current occupational status: disabled Cognitive needs: No Hearing needs: No Vision needs: No Questionnaire PHQ-9 Over the last 2 weeks, how often have you been bothered by any of the following problems? 1. Little interest or pleasure in doing things: not at all 2. Feeling down, depressed, or hopeless: several days 3. Trouble falling or staying asleep, or sleeping too much: not at all 4. Feeling tired or having little energy: not at all 5. Poor appetite or overeating: not at all 6. Feeling bad about yourself - or that you are a failure or have let yourself or your family down: not at all 7. Trouble concentrating on things, such as reading the newspaper or watching television: not at all 8. Moving or speaking so slowly that other people could have noticed. Or the opposite - being so fidgety or restless that you have been moving around a lot more than usual: not at all 9. Thoughts that you would be better off or of hurting yourself in some way: not at all Total score: 1 Depression Screening Interpretation: Positive Depression Screening Follow-up: Existing condition and In treatment Depression Screening Done: Yes 59813 - PHQ-9 Billing: Yes Source: Developed by Drs. David Perry, Lissett Long, Dayo Salgado and colleagues, with an educational maurice from [employer]. Thrive Questionnaire Date Thrive assessed: 10/03/23 I am a: Patient What is your living situation today?: I have a steady place to live Within the past 12 months, did the food you bought not last and you didn't have the money to get more?: Never true Within the past 12 months, did you worry whether your food would run out before you got money to buy more?: Never true Do you have trouble paying for medicines?: No Do you have trouble getting transportation to medical appointments?: No Do you have trouble paying your heating and electricity bill?: No Do you have trouble taking care of your child, family member or friend?: No Do you have trouble with day-to-day activities such as bathing, preparing meals, shopping, managing finances, etc.?: No Are you currently unemployed and looking for a job?: No Are you interested in more education?: No Please select the resources that you would like help with: None Currently or been in a relationship where the following occur: no concerns reported THRIVE Score: 0 AUDIT C Alcohol Use Questionnaire (AUDIT-C) 1. How often do you have a drink containing alcohol?: Monthly or less 2. How many drinks containing alcohol do you have on a typical day when you are drinking?: 1 or 2 3. How often do you have six or more drinks on one occasion?: Never Total Score: 1 VICENTE-7 AMB Questionnaire VICENTE-7 Date VICENTE - 7 assessed: 10/03/23 Feeling nervous, anxious, or on edge: 1 = Several days Not being able to stop or control worryin = Not at all Worrying too much about different things: 1 = Several days Trouble relaxin = Not at all Being so restless that it is hard to sit still: 0 = Not at all Becoming easily annoyed or irritable: 0 = Not at all Feeling afraid as if something awful might happen: 0 = Not at all Total VICENTE-7 score (0-4 normal; 5-9 mild; 10-14 moderate; 15-21 severe): 2 Source: Developed by Drs. David Perry, Lissett Long, Dayo Salgado and colleagues, with an educational maurice from [employer]. VICENTE-7 Assessment Billing VICENTE-7 Assessment Tool: VICENTE-7 Assessment 56105 Review of Systems Const All systems reviewed & are unremarkable except as noted in HPI and below Eyes Reports no additional complaints, Denies change in vision and Denies other visual disturbances Card Denies chest pain at rest, Denies chest pain with activity, Denies edema, Denies irregular heart rhythm, Denies claudication, Denies dyspnea, Denies dyspnea on exertion, Denies orthopnea, Denies paroxysmal nocturnal dyspnea and Denies slow heart rate Resp Denies cough, Denies dyspnea and Denies dyspnea on exertion Physical exam (Primary Care) Vital Signs: Last Vital Signs BP 122/80 10/03/23 10:00 BMI result Body Mass Index 29.3 Tobacco/Smoking Status: Tobacco use Status Tobacco use date assessed 10/03/23 10/03/23 10:04 Patient Tobacco Use Status Current everyday Tobacco 10/03/23 10:04 Tobacco use type Cigarette 10/03/23 10:04 e-Cigarette/Vaping Use Never Used 10/03/23 10:04 PHQ-9: PHQ-9 Score PHQ-9: Total score 1 10/03/23 10:04 Depression Screening Interpretation: Positive Depression Screening Follow-up: Existing condition and In treatment Thrive Assessment: Date of Thrive Assessment Date Thrive assessed 10/03/23 10/03/23 10:04 Currently or been in a relationship where the following occur: no concerns reported Resp Effort & Inspection: normal respiratory effort Auscultation: clear to auscultation bilaterally Cardio Jugular venous distension: no JVD Rate: regular rate Rhythm: regular rhythm Heart sounds: S1 normal heart sound present and S2 normal heart sound present Extrem General: Yes full ROM Assessment and Plan Assessment & Plan (1) Mild recurrent major depression: Code(s): F33.0 - Major depressive disorder, recurrent, mild Plan: Continue duloxetine. (2) Fibromyalgia: Code(s): M79.7 - Fibromyalgia Plan: Continue duloxetine. (3) Autoimmune thyroiditis: Code(s): E06.3 - Autoimmune thyroiditis Plan: Increase levothyroxine to 125 mcg. Repeat TSH in 6 weeks. (4) GERD (gastroesophageal reflux disease): Code(s): K21.9 - Gastro-esophageal reflux disease without esophagitis Plan: Continue PPIs. (5) Migraines: Code(s): G43.909 - Migraine, unspecified, not intractable, without status migrainosus Qualifiers: Migraine type: unspecified Status migrainosus presence: without status migrainosus Intractability: not intractable Qualified Code(s): G43.909 - Migraine, unspecified, not intractable, without status migrainosus Plan: Continue sumatriptan as needed. Continue Topamax for migraine prophylaxis. Orders: Orders Thyroid Stimulating Hormone 6 Weeks E06.3 - Autoimmune thyroiditis Medications: New levothyroxine 125 mcg PO DAILY 90 days 90 tabs 1RF E06.3 - Autoimmune thyroiditis Discontinued levothyroxine Discontinued Reason: Order 112 mcg PO QAM 90 tabs 1RF Coding Level of Care Code Est Pt Level 4 (67556) Diagnoses Mild recurrent major depression F33.0 Fibromyalgia M79.7 Autoimmune thyroiditis E06.3 GERD (gastroesophageal reflux disease) K21.9 Migraine without status migrainosus, not intractable, unspecified migraine type G43.909 Migraine type: unspecified Status migrainosus presence: without status migrainosus Intractability: not intractable Additional Codes VICENTE-7 Assessment Billing - VICENTE-7 Assessment Tool: VICENTE-7 Assessment 09478 ([id number]) Time Spent (min) 23
[2023-10-03 10:00] VITALS: BP 122/80; BMI 29.3
== END 2023-10-03 10:29 | disposition home or self-care (01) ==
PROVIDERS: PCP Internal Medicine; Visit Provider Internal Medicine
DX: E06.3 Autoimmune thyroiditis (principal); G43.909 Migraine, unspecified, not intractable, without status migrainosus; M79.7 Fibromyalgia; F33.0 Major depressive disorder, recurrent, mild; K21.9 Gastro-esophageal reflux disease without esophagitis
CPT/HCPCS: 99214

== ENCOUNTER 2023-11-15 09:02 | Outpatient (REF) | payer OTHER, MEDICAID, SELFPAY ==
[2023-11-15 10:51] LABS: Thyroid Stimulating Hormone 1.69 uIU/mL (0.32-4.0)
== END 2023-11-15 09:03 | disposition home or self-care (01) ==
LOC: HO.LAB 09:02
PROVIDERS: PCP Internal Medicine; Visit Provider Internal Medicine
DX: E06.3 Autoimmune thyroiditis (principal)
CPT/HCPCS: 36415; 84443

== ENCOUNTER 2024-04-07 09:20 | Outpatient (AMB) | payer OTHER, MEDICAID, SELFPAY ==
--- NOTE | 2024-04-07 09:23 | MHC.PC.OV ---
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 Accompanied by: Self / Same As Patient Allergies duloxetine Adverse Reaction (Intermediate, Verified 04/07/24 09:49) diarrhea,vomiting gabapentin Adverse Reaction (Intermediate, Verified 04/07/24 09:49) dizziness Medication List - Last Reconciled 04/07/24 by Kathrine Zeng MD baclofen 10 mg PO TID duloxetine 60 mg (2 x 30 mg) PO DAILY 90 days ibuprofen 600 mg PO Q8H PRN levothyroxine 125 mcg PO DAILY 90 days naproxen 500 mg PO Q12H PRN 90 days omeprazole 40 mg PO DAILY 90 days sumatriptan succinate 50 mg PO BID PRN 30 days topiramate 50 mg PO BID 90 days tramadol 50 mg PO DAILY 30 days Tobacco use date assessed: 10/03/23 Dental Screening Dental Screen Date: 10/03/23 HPI HPI Comments History of Present Illness Details This is a 59-year-old female with mild recurrent major depression and lumbar degenerative disc disease that comes for her physical exam. Depression stable with citalopram. Still has low back pain and would like to increase baclofen. Had reaction with duloxetine and does not want to use it anymore. Declines Pap smear. Mammogram done less than a year ago was normal. Declines colonoscopy and also any colon cancer screening lab. Declines flu vaccine. [facility] Medical History (Updated 04/07/24 @ 09:57 by Kathrine Zeng MD) Mild recurrent major depression Thoracic spine pain Left shoulder pain Neck pain Migraines Right foot pain GERD (gastroesophageal reflux disease) Lumbar degenerative disc disease Autoimmune thyroiditis Surgical History History of laminectomy History of tubal ligation History of tonsillectomy Family History Father Heart problem CVD (cardiovascular disease) Mother Heart problem Acute kidney failure Hypertension CVD (cardiovascular disease) Sister Hypertension Brother Heart problem Social History Housing: Apartment Alcohol intake: current Alcohol intake frequency: holidays/special occasions only Alcohol type: beer Patient Tobacco Use Status: Current everyday Tobacco user Tobacco use type: Cigarette Cigarettes Per Day: 4 e-Cigarette/Vaping Use: Never Used Second Hand Smoke Exposure: No service: No Current occupational status: disabled Cognitive needs: No Hearing needs: No Vision needs: No Questionnaire PHQ-9 Over the last 2 weeks, how often have you been bothered by any of the following problems? 1. Little interest or pleasure in doing things: not at all 2. Feeling down, depressed, or hopeless: not at all 3. Trouble falling or staying asleep, or sleeping too much: nearly every day 4. Feeling tired or having little energy: nearly every day 5. Poor appetite or overeating: nearly every day 6. Feeling bad about yourself - or that you are a failure or have let yourself or your family down: not at all 7. Trouble concentrating on things, such as reading the newspaper or watching television: several days 8. Moving or speaking so slowly that other people could have noticed. Or the opposite - being so fidgety or restless that you have been moving around a lot more than usual: several days 9. Thoughts that you would be better off or of hurting yourself in some way: not at all Total score: 11 Depression Screening Interpretation: Positive Depression Screening Follow-up: Existing condition, In treatment and Follow-up Visit Requested Depression Screening Done: Yes 58459 - PHQ-9 Billing: Yes Source: Developed by Drs. David Perry, Lissett Long, Dayo Salgado and colleagues, with an educational maurice from [employer]. Thrive Questionnaire Date Thrive assessed: 04/07/24 I am a: Patient What is your living situation today?: I have a steady place to live Within the past 12 months, did the food you bought not last and you didn't have the money to get more?: Sometimes True Within the past 12 months, did you worry whether your food would run out before you got money to buy more?: Sometimes True Do you have trouble paying for medicines?: No Do you have trouble getting transportation to medical appointments?: No Do you have trouble paying your heating and electricity bill?: No Do you have trouble taking care of your child, family member or friend?: No Do you have trouble with day-to-day activities such as bathing, preparing meals, shopping, managing finances, etc.?: No Are you currently unemployed and looking for a job?: No Are you interested in more education?: No Please select the resources that you would like help with: None Currently or been in a relationship where the following occur: No concerns reported THRIVE Score: 2 AUDIT C Alcohol Use Questionnaire (AUDIT-C) 1. How often do you have a drink containing alcohol?: Never Total Score: 0 VICENTE-7 AMB Questionnaire VICENTE-7 Date VICENTE - 7 assessed: 04/07/24 Feeling nervous, anxious, or on edge: 0 = Not at all Not being able to stop or control worryin = Several days Worrying too much about different things: 0 = Not at all Trouble relaxin = Several days Being so restless that it is hard to sit still: 2 = More than half the days Becoming easily annoyed or irritable: 0 = Not at all Feeling afraid as if something awful might happen: 0 = Not at all Total VICENTE-7 score (0-4 normal; 5-9 mild; 10-14 moderate; 15-21 severe): 4 Source: Developed by Drs. David Perry, Lissett Long, Dayo Salgado and colleagues, with an educational maurice from [employer]. VICENTE-7 Assessment Billing VICENTE-7 Assessment Tool: VICENTE-7 Assessment 33400 Review of Systems Const All systems reviewed & are unremarkable except as noted in HPI and below Card Denies chest pain at rest, Denies chest pain with activity, Denies edema, Denies irregular heart rhythm, Denies claudication, Denies dyspnea, Denies dyspnea on exertion, Denies orthopnea, Denies paroxysmal nocturnal dyspnea and Denies slow heart rate Resp Denies cough, Denies dyspnea and Denies dyspnea on exertion GI Denies abdominal pain, Denies change in bowel habits, Denies excessive flatus, Denies nausea and Denies vomiting Denies urinary incontinence, Denies urinary hesitancy and Denies urinary urgency Musc Denies atrophy, Denies deformity and Denies limited range of motion Physical exam (Primary Care) Vital Signs: Last Vital Signs BP 120/86 04/07/24 09:24 BMI result Body Mass Index 29.5 Tobacco/Smoking Status: Tobacco use Status Tobacco use date assessed 10/03/23 04/07/24 09:27 Patient Tobacco Use Status Current everyday Tobacco 04/07/24 09:27 Tobacco use type Cigarette 04/07/24 09:27 e-Cigarette/Vaping Use Never Used 04/07/24 09:27 Are you ready to quit: Yes Tobacco cessation counseling provided: Yes Items discussed: Nicotine replacement and QuitWorks Relapse Prevention: discussed the importance of a supportive environment, discussed extending NRT, discussed negative mood or depression after quitting, weight gain after smoking is common and discussed dietary, exercise and/or lifestyle changes Number of minutes spent counselin CPT code: 20421 - 4-10 Minutes PHQ-9: PHQ-9 Score PHQ-9: Total score 11 04/07/24 09:30 Depression Screening Interpretation: Positive Depression Screening Follow-up: Existing condition, In treatment and Follow-up Visit Requested Thrive Assessment: Date of Thrive Assessment Date Thrive assessed 04/07/24 04/07/24 09:27 Currently or been in a relationship where the following occur: No concerns reported Eyes General: appearance normal, both eyes and all related structures Eyelids: Yes eyelids normal Conjunctivae: conjunctivae normal Neck Neck: Yes normal visual inspection and Yes supple Resp Effort & Inspection: normal respiratory effort Auscultation: clear to auscultation bilaterally Cardio Jugular venous distension: no JVD Rate: regular rate Rhythm: regular rhythm Heart sounds: S1 normal heart sound present and S2 normal heart sound present GI Inspection: Yes normal to inspection Palpation (GI): Soft to palpation and nontender Auscultation: normal bowel sounds Skin General skin exam: no rashes or lesions noted Neuro General: no focal motor deficits Extrem General: Yes full ROM Psych Appearance: grossly normal Office Procedures Flu Questionnaire Does the patient have a severe egg allergy?: No Immunizations Fluarix Triv [id number] (PF) 45 mcg (15 mcg x 3)/0.5 mL IM syringe Performing Provider: Kathrine Zeng MD [facility] Documented (not given) by: LASHA Mattson on 04/07/24 09:30 Reason Not Given: Patient Refused Coding Level of Care Code Est Pt Level 3 (54922) Est Pt Prev Care 40-64y(60125) Diagnoses Physical exam Z00.00 Mild recurrent major depression F33.0 Degeneration of intervertebral disc of lumbar region with discogenic back pain M51.360 Disc-related pain type: discogenic back pain only Additional Codes VICENTE-7 Assessment Billing - VICENTE-7 Assessment Tool: VICENTE-7 Assessment 93245 ([id number]) Vital Signs *Quality* - CPT code: 36012 - 4-10 Minutes ([id number]) Time Spent (min) 34 Assessment & Plan Assessment & Plan (1) Physical exam: Code(s): Z00.00 - Encounter for general adult medical examination without abnormal findings Category: Medical Plan: Repeat in a year. (2) Mild recurrent major depression: Code(s): F33.0 - Major depressive disorder, recurrent, mild Category: Medical Plan: Continue citalopram. (3) Lumbar degenerative disc disease: Code(s): M51.36 - Other intervertebral disc degeneration, lumbar region Category: Medical Qualifiers: Disc-related pain type: discogenic back pain only Qualified Code(s): M51.360 - Other intervertebral disc degeneration, lumbar region with discogenic back pain only Plan: Increase baclofen. Orders: Orders Lipid Panel Today E78.5 - Hyperlipidemia, unspecified Influenza [id number] Immunization Today Z23 - Encounter for immunization Comprehensive [place]ora. Panel Fast Today Z00.00 - Encounter for general adult medical examination without abnormal findings Thyroid Stimulating Hormone Today E06.3 - Autoimmune thyroiditis Medications: Discontinued duloxetine Discontinued Reason: Patient Completed Course 60 mg (2 x 30 mg) PO DAILY 90 days 180 caps 3RF
[2024-04-07 09:24] VITALS: BP 120/86; BMI 29.5
== END 2024-04-07 09:50 | disposition home or self-care (01) ==
PROVIDERS: PCP Internal Medicine; Visit Provider Internal Medicine
DX: Z00.00 Encounter for general adult medical examination without abnormal findings (principal); F33.0 Major depressive disorder, recurrent, mild; M51.360 Other intervertebral disc degeneration, lumbar region with discogenic back pain only; Z23 Encounter for immunization; F17.210 Nicotine dependence, cigarettes, uncomplicated

== ENCOUNTER → 2024-04-07 09:20 | Outpatient (BNVA) | payer OTHER, MEDICAID, SELFPAY | PROVIDERS: PCP Internal Medicine; Visit Provider Internal Medicine | DX: Z00.01 Encounter for general adult medical examination with abnormal findings (principal); F33.0 Major depressive disorder, recurrent, mild; M51.360 Other intervertebral disc degeneration, lumbar region with discogenic back pain only | CPT/HCPCS: 90471; 96127; 99212; 99396 ==

== ENCOUNTER → 2024-07-10 10:45 | Outpatient (BNV) | payer MEDICARE, SELFPAY | PROVIDERS: PCP Internal Medicine; Visit Provider Internal Medicine | DX: Z12.31 Encounter for screening mammogram for malignant neoplasm of breast (principal) | CPT/HCPCS: 77063; 77067 ==

== ENCOUNTER 2024-07-10 10:49 | Outpatient (REF) | payer MEDICARE, SELFPAY | END 2024-07-10 10:50 | disposition home or self-care (01) | LOC: HO.MAMMO 10:49 | PROVIDERS: PCP Internal Medicine; Visit Provider Internal Medicine | DX: Z12.31 Encounter for screening mammogram for malignant neoplasm of breast (principal) | CPT/HCPCS: 77063; 77067 ==

== ENCOUNTER 2024-10-05 09:10 | Outpatient (REF) | payer MEDICARE, MEDICAID, SELFPAY ==
[2024-10-05 10:45] LABS: Alanine Aminotransferase 14 U/L (0-31); Albumin Level 4.1 g/dL (3.5-5.0); Alkaline Phosphatase 136 U/L (39-117); Anion Gap 8 (12-20); Aspartate Amino Transferase 21 U/L (5-31); Bilirubin Total 0.3 mg/dL (0.0-1.0); Blood Urea Nitrogen 27 mg/dL (9-16); Carbon Dioxide 22 mmol/L (22-29); Chloride 115 mmol/L (96-108); Cholesterol 199 mg/dL (<200); Estimated Glomerular Filt Rate > 60; Glucose Fasting 97 mg/dL (60-99); HDL Cholesterol 84 mg/dL (>40); LDL Cholesterol Calculated 99 mg/dL (<100); Potassium 4.3 mmol/L (3.3-5.1); Sodium 141 mmol/L (135-145); Total Protein 6.7 g/dL (6.5-8.0); Triglycerides 84 mg/dL (<150)
[2024-10-05 11:04] LABS: Thyroid Stimulating Hormone 0.15 uIU/mL (0.32-4.0)
== END 2024-10-05 09:11 | disposition home or self-care (01) ==
LOC: HO.LAB 09:10
PROVIDERS: PCP Internal Medicine; Visit Provider Internal Medicine
DX: Z00.00 Encounter for general adult medical examination without abnormal findings (principal); E78.5 Hyperlipidemia, unspecified; E06.3 Autoimmune thyroiditis
CPT/HCPCS: 36415; 80053; 80061; 84443

== ENCOUNTER 2024-10-06 10:42 | Outpatient (AMB) | payer MEDICARE, MEDICAID, SELFPAY ==
--- NOTE | 2024-10-06 10:53 | A.OFFPC_ITS ---
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: No Accompanied by: Self / Same As Patient Allergies duloxetine Adverse Reaction (Intermediate, Verified 10/06/24 10:59) diarrhea,vomiting gabapentin Adverse Reaction (Intermediate, Verified 10/06/24 10:59) dizziness Medication List - Last Reconciled 10/06/24 by Kathrine Zeng MD baclofen 15 mg PO TID 30 days ibuprofen 600 mg PO Q8H PRN levothyroxine 125 mcg PO DAILY 90 days naproxen 500 mg PO Q12H PRN 90 days omeprazole 40 mg PO DAILY 90 days sumatriptan succinate 50 mg PO BID PRN 30 days topiramate 50 mg PO BID 90 days tramadol 50 mg PO DAILY 30 days Tobacco use date assessed: 10/06/24 Dental Screening Dental Screen Date: 10/06/24 Did you have a dental visit in the last 12 months?: Yes Did you have a dental problem in the last 6 months where you did not have access to dental care?: No Was dental information given to patient?: Patient has dentist HPI HPI Comments History of Present Illness Details The patient is a 59-year-old female presenting with issues in thyroid function management, GERD, mild major depression, fibromyalgia, lumbar degenerative disc disease and migraines. She is on medication for hypothyroidism, and recent labs reveal a low TSH of 0.15 leading to a dose adjustment of her levothyroxine from 125 mcg to 112 mcg. Follow-up in 6 weeks will further assess her thyroid function. Her migraines are treated with sumatriptan and topiramate at 50 mg twice daily. She uses ibuprofen for arthritis-related pain and baclofen for muscle spasms. Omeprazole is taken as needed for GERD symptoms. The patient is a current smoker of about four cigarettes daily and drinks alcohol occasionally. Declines treatment for fibromyalgia or mild major depression. [facility] Medical History (Updated 04/07/24 @ 09:57 by Kathrine Zeng MD) Mild recurrent major depression Thoracic spine pain Left shoulder pain Neck pain Migraines Right foot pain GERD (gastroesophageal reflux disease) Lumbar degenerative disc disease Autoimmune thyroiditis Surgical History History of laminectomy History of tubal ligation History of tonsillectomy Family History Father Heart problem CVD (cardiovascular disease) Mother Heart problem Acute kidney failure Hypertension CVD (cardiovascular disease) Sister Hypertension Brother Heart problem Social History Housing: Apartment Alcohol intake: current Alcohol intake frequency: holidays/special occasions only Alcohol type: beer Patient Tobacco Use Status: Current everyday Tobacco user Tobacco use type: Cigarette Cigarettes Per Day: 4 e-Cigarette/Vaping Use: Never Used Second Hand Smoke Exposure: No service: No Current occupational status: disabled Cognitive needs: No Hearing needs: No Vision needs: No Questionnaire PHQ-9 Over the last 2 weeks, how often have you been bothered by any of the following problems? 1. Little interest or pleasure in doing things: several days 2. Feeling down, depressed, or hopeless: several days 3. Trouble falling or staying asleep, or sleeping too much: several days 4. Feeling tired or having little energy: several days 5. Poor appetite or overeating: not at all 6. Feeling bad about yourself - or that you are a failure or have let yourself or your family down: not at all 7. Trouble concentrating on things, such as reading the newspaper or watching television: not at all 8. Moving or speaking so slowly that other people could have noticed. Or the opposite - being so fidgety or restless that you have been moving around a lot more than usual: not at all 9. Thoughts that you would be better off or of hurting yourself in some way: not at all Total score: 4 Source: Developed by Drs. David Perry, Lissett Long, Dayo Salgado and colleagues, with an educational maurice from [employer]. Thrive Questionnaire Date Thrive assessed: 10/06/24 I am a: Patient What is your living situation today?: I have a steady place to live Within the past 12 months, did the food you bought not last and you didn't have the money to get more?: Never true Within the past 12 months, did you worry whether your food would run out before you got money to buy more?: Never true Do you have trouble paying for medicines?: No Do you have trouble getting transportation to medical appointments?: No Do you have trouble paying your heating and electricity bill?: No Do you have trouble taking care of your child, family member or friend?: No Do you have trouble with day-to-day activities such as bathing, preparing meals, shopping, managing finances, etc.?: No Are you currently unemployed and looking for a job?: No Are you interested in more education?: No Please select the resources that you would like help with: None Currently or been in a relationship where the following occur: No concerns reported THRIVE Score: 0 AUDIT C Alcohol Use Questionnaire (AUDIT-C) 1. How often do you have a drink containing alcohol?: Never Total Score: 0 VICENTE-7 AMB Questionnaire VICENTE-7 Date VICENTE - 7 assessed: 10/06/24 Feeling nervous, anxious, or on edge: 0 = Not at all Not being able to stop or control worryin = Not at all Worrying too much about different things: 0 = Not at all Trouble relaxin = Not at all Being so restless that it is hard to sit still: 0 = Not at all Becoming easily annoyed or irritable: 0 = Not at all Feeling afraid as if something awful might happen: 0 = Not at all Total VICENTE-7 score (0-4 normal; 5-9 mild; 10-14 moderate; 15-21 severe): 0 Source: Developed by Drs. David Perry, Lissett Long, Dayo Salgado and colleagues, with an educational maurice from [employer]. Review of Systems Const All systems reviewed & are unremarkable except as noted in HPI and below Card Denies chest pain at rest, Denies chest pain with activity, Denies edema, Denies irregular heart rhythm, Denies claudication, Denies dyspnea, Denies dyspnea on exertion, Denies orthopnea, Denies paroxysmal nocturnal dyspnea and Denies slow heart rate Resp Denies cough, Denies dyspnea and Denies dyspnea on exertion GI Denies abdominal pain, Denies change in bowel habits, Denies excessive flatus, Denies nausea and Denies vomiting Denies urinary incontinence, Denies urinary hesitancy and Denies urinary urgency Musc Denies abnormal gait, Denies atrophy, Denies deformity and Denies limited range of motion Skin/Breast Denies bleeding lesions, Denies changing lesions and Denies rash Neuro Denies abnormal gait and Denies lack of coordination Physical exam (Primary Care) Vital Signs: Last Vital Signs BP 132/80 10/06/24 10:54 BMI result Body Mass Index 29.2 Tobacco/Smoking Status: Tobacco use Status Tobacco use date assessed 10/03/23 04/07/24 09:27 Patient Tobacco Use Status Current everyday Tobacco 04/07/24 09:27 Tobacco use type Cigarette 04/07/24 09:27 e-Cigarette/Vaping Use Never Used 04/07/24 09:27 Are you ready to quit: No Tobacco cessation counseling provided: Yes Items discussed: Nicotine replacement and QuitWorks Relapse Prevention: discussed negative mood or depression after quitting and weight gain after smoking is common Number of minutes spent counselin CPT code: Less than 3 minutes Thrive Assessment: Date of Thrive Assessment Date Thrive assessed 04/07/24 04/07/24 09:27 Currently or been in a relationship where the following occur: No concerns reported Resp Effort & Inspection: normal respiratory effort Auscultation: clear to auscultation bilaterally Cardio Jugular venous distension: no JVD Rate: regular rate Rhythm: regular rhythm Heart sounds: S1 normal heart sound present and S2 normal heart sound present Extrem General: Yes full ROM Coding Level of Care Code Est Pt Level 4 (68060) Complex EM visit Add On G2211 Diagnoses Mild recurrent major depression F33.0 Fibromyalgia M79.7 Migraine without status migrainosus, not intractable, unspecified migraine type G43.909 Migraine type: unspecified Status migrainosus presence: without status migrainosus Intractability: not intractable GERD (gastroesophageal reflux disease) K21.9 Degeneration of intervertebral disc of lumbar region with discogenic back pain M51.360 Disc-related pain type: discogenic back pain only Autoimmune thyroiditis E06.3 Time Spent (min) 23 Assessment & Plan Assessment & Plan (1) Mild recurrent major depression: Code(s): F33.0 - Major depressive disorder, recurrent, mild Category: Medical (2) Fibromyalgia: Code(s): M79.7 - Fibromyalgia Category: Medical (3) Migraines: Code(s): G43.909 - Migraine, unspecified, not intractable, without status migrainosus Category: Medical Qualifiers: Migraine type: unspecified Status migrainosus presence: without status migrainosus Intractability: not intractable Qualified Code(s): G43.909 - Migraine, unspecified, not intractable, without status migrainosus (4) GERD (gastroesophageal reflux disease): Code(s): K21.9 - Gastro-esophageal reflux disease without esophagitis Category: Medical (5) Lumbar degenerative disc disease: Code(s): M51.36 - Other intervertebral disc degeneration, lumbar region Category: Medical Qualifiers: Disc-related pain type: discogenic back pain only Qualified Code(s): M51.360 - Other intervertebral disc degeneration, lumbar region with discogenic back pain only (6) Autoimmune thyroiditis: Code(s): E06.3 - Autoimmune thyroiditis Category: Medical Plan A follow-up lab test in six weeks is essential. Migraine management continues with sumatriptan and topiramate, while arthritis pain is managed with ibuprofen and naproxen, and muscle spasms with baclofen. GERD symptoms will be controlled with omeprazole as needed. The patient's ongoing nicotine dependence needs addressing, and affordable vitamin D intake alternatives were considered. Monitoring the patient's response to medication for thyroid function and pain relief remains crucial.: Patient was informed and verbally consented to the use of an ambient scribe for clinic note documentation during this visit. During our consultation, I discussed the need to decrease the levothyroxine dosage from 125 mcg to 112 mcg due to the patient's low TSH level of 0.15. We agreed on a follow-up thyroid function test in six weeks. I explained the ongoing need for sumatriptan and topiramate to manage her migraines and the current use of ibuprofen and naproxen for arthritis pain, along with baclofen for muscle spasms. We also covered the necessity to address her smoking habits, exploring available options and their potential benefits. We talked about the cost barriers to vitamin D supplementation and the importance of maintaining nutrient levels. The patient understood that regular follow-up is vital to optimizing her treatment and management strategy. Orders: Orders Thyroid Stimulating Hormone 6 Weeks E06.3 - Autoimmune thyroiditis Vitamin D 25-OH Total 6 Months E55.9 - Vitamin D deficiency, unspecified Complete Blood Count Auto Diff 6 Months D64.9 - Anemia, unspecified Comprehensive [place]. Panel Fast 6 Months G43.909 - Migraine, unspecified, not intractable, without status migrainosus Lipid Panel 6 Months E78.5 - Hyperlipidemia, unspecified Medications: New levothyroxine 112 mcg PO DAILY 90 days 90 tabs 0RF Refilled omeprazole 40 mg PO DAILY 90 days 90 caps 3RF K21.9 - Gastro-esophageal reflux disease without esophagitis tramadol 50 mg PO DAILY 30 days 30 tabs 0RF Discontinued levothyroxine Discontinued Reason: Patient Completed Course 125 mcg PO DAILY 90 days 90 tabs 1RF E06.3 - Autoimmune thyroiditis Patient Instructions: - Adjust levothyroxine dosage to 112 mcg. - Follow up with thyroid function testing in 6 weeks. - Continue using sumatriptan and topiramate for migraines. - Use ibuprofen and naproxen for arthritis pain as needed. - Take baclofen as prescribed for muscle spasms. - Use omeprazole as needed for acid reflux symptoms. - Aim to quit smoking and discuss cessation strategies. - Consider dietary sources or affordable supplementation for vitamin D.
[2024-10-06 10:54] VITALS: BP 132/80; BMI 29.2
== END 2024-10-06 11:10 | disposition home or self-care (01) ==
LOC: HO.HMCH 10:42
PROVIDERS: PCP Internal Medicine; Visit Provider Internal Medicine
DX: F33.0 Major depressive disorder, recurrent, mild (principal); M79.7 Fibromyalgia; G43.909 Migraine, unspecified, not intractable, without status migrainosus; K21.9 Gastro-esophageal reflux disease without esophagitis; M51.360 Other intervertebral disc degeneration, lumbar region with discogenic back pain only; E06.3 Autoimmune thyroiditis

== ENCOUNTER → 2024-10-06 10:42 | Outpatient (BNVA) | payer MEDICARE, MEDICAID, SELFPAY | PROVIDERS: PCP Internal Medicine; Visit Provider Internal Medicine | DX: K21.9 Gastro-esophageal reflux disease without esophagitis (principal); M79.7 Fibromyalgia; G43.909 Migraine, unspecified, not intractable, without status migrainosus; E03.9 Hypothyroidism, unspecified; F33.0 Major depressive disorder, recurrent, mild; M51.360 Other intervertebral disc degeneration, lumbar region with discogenic back pain only; E06.3 Autoimmune thyroiditis; F17.210 Nicotine dependence, cigarettes, uncomplicated; Z79.899 Other long term (current) drug therapy | CPT/HCPCS: 96127; 99212 ==

== ENCOUNTER 2025-01-05 14:10 | Outpatient (AMB) | payer MEDICARE, MEDICAID, SELFPAY ==
--- NOTE | 2025-01-05 14:26 | MHC.OFFVIS ---
Intake Visit Reasons: 2m Allergies duloxetine Adverse Reaction (Intermediate, Verified 01/05/25 14:30) diarrhea,vomiting gabapentin Adverse Reaction (Intermediate, Verified 01/05/25 14:30) dizziness Medication List - Last Reconciled 01/05/25 by Nikki Medina CNP baclofen 10 mg PO BID duloxetine 30 mg PO BID ibuprofen 600 mg PO Q8H PRN levothyroxine 112 mcg PO DAILY 90 days naproxen 500 mg PO Q12H PRN 90 days omeprazole 40 mg PO DAILY 90 days ondansetron 4 mg PO DAILY PRN sumatriptan succinate 50 mg PO BID PRN 30 days topiramate 100 mg PO BID tramadol 50 mg PO DAILY 30 days HPI Comments Details: 59 yo woman with Graves disease and migraines. She tried topiramate 50mg in the morning and 100mg at bedtime for about 2 weeks without improvement. She increased dose further on her own to 100mg in the morning and 100mg at bedtime. Migraines were much better with topiramate 100mg twice a day. She was not waking up with headache anymore. She had few mild headaches, but no significant migraines and has not had to take sumatriptan since increasing dose. No medication side effects, including daytime drowsiness. Sleep was okay. PENDING SALE TO [facility] Medical History (Updated 01/04/25 @ 19:39 by Lyndsey Moran MA) Back pain Graves disease Arthritis Insomnia Mild recurrent major depression Thoracic spine pain Left shoulder pain Neck pain Migraines Right foot pain GERD (gastroesophageal reflux disease) Lumbar degenerative disc disease Autoimmune thyroiditis Surgical History History of laminectomy History of tubal ligation History of tonsillectomy Family History Father Heart problem CVD (cardiovascular disease) Mother Heart problem Acute kidney failure Hypertension CVD (cardiovascular disease) Sister Hypertension Brother Heart problem Social History Housing: Apartment Alcohol intake: current Alcohol intake frequency: holidays/special occasions only Alcohol type: beer Patient Tobacco Use Status: Current everyday Tobacco user Tobacco use type: Cigarette Cigarettes Per Day: 4 e-Cigarette/Vaping Use: Never Used Second Hand Smoke Exposure: No service: No Current occupational status: disabled Cognitive needs: No Hearing needs: No Vision needs: No Review of Systems Const Denies chills, Denies daytime sleepiness, Denies difficulty sleeping, Denies fatigue, Denies fever(s), Denies frequent falls, Reports headache(s), Denies increased appetite, Denies poor appetite, Denies snoring, Denies weakness, Denies weight gain and Denies weight loss Eyes Denies loss of vision ENT Denies vertigo, Denies dizziness and Reports headache(s) Card Denies chest pain at rest, Denies chest pain with activity, Denies leg edema and Denies palpitations Resp Denies snoring GI Denies constipation, Denies heartburn, Denies diarrhea and Denies nausea Denies urinary frequency, Denies urinary incontinence and Denies urinary urgency Musc Denies abnormal gait, Denies numbness and Denies tingling Skin/Breast Denies dry skin and Denies rash Neuro Denies abnormal gait, Denies vertigo, Denies dizziness, Denies frequent falls, Reports headache(s), Denies lack of coordination, Denies loss of vision, Denies memory loss, Denies numbness, Denies restless legs, Denies seizure-like activity, Denies tingling, Denies paresthesias, Denies tremor(s) and Denies weakness Psych Denies anxiety, Denies depression, Denies auditory hallucinations, Denies memory loss, Denies visual hallucinations and Denies suicidal ideation Endo Denies fatigue and Denies palpitations Physical Exam Const Other: General Appearance:? normal, in no acute distress. Skin:? no rashes, no significant birthmarks. Heart:? S1, S2 normal, no murmurs. Lungs:? clear anteriorly and posteriorly. Extremities:? no edema. Psych:? alert, oriented, cognitive function intact, cooperative with exam. Neuro Other: Mental Status:?Normal attention, orientation, memory and affect.? Cranial Nerves:?Pupils are equal, round and reactive to light. External occular muscles are intact. Visual obrien are full. Face is symmetrical. Facial sensations are normal. Tongue is midline. Palate elevates symmetrically. Shoulder shrugging is normal. Hearing to bedside conversation is normal. Motor Examination:?Normal muscle tone, bulk and strength,?Deep tendon reflexes are 2+,?Plantars are flexor.? Sensory Exam:?....? Coordination:?No ataxia,?no titubation.? Gait Exam: Within normal limits. Cerebellar Signs:?[id number] and [id number] is normal.? Extrapyramidal System:?No tremor, rigidity with normal facial expressions.? Pronator Drift:?Not present.? Involuntary Movements:?No tremors seen.? Speech:?Normal.? Assessment & Plan Assessment & Plan (1) Migraines: Code(s): G43.909 - Migraine, unspecified, not intractable, without status migrainosus Category: Medical Qualifiers: Migraine type: unspecified Status migrainosus presence: without status migrainosus Intractability: not intractable Qualified Code(s): G43.909 - Migraine, unspecified, not intractable, without status migrainosus Plan: Continue topiramate 100mg 1 tablet twice a day. She was educated on the importance of taking all medications as prescribed and to consult provider if medication dose adjustment may be necessary to review safety. Continue sumatriptan 50mg 1 tablet as needed for migraine. Continue ondansetron 4mg 1 tablet as needed for nausea. Medications: New topiramate 100 mg PO BID 180 tabs 1RF 90 days sumatriptan succinate take 1 tab at onset of headache; if no relief may repeat 1 tab after at least 2 hrs; PO 10 tabs 5RF 30 days Discontinued sumatriptan succinate Discontinued Reason: Order 50 mg PO BID 30 days PRN 12 tabs 2RF migraine headache ondansetron Discontinued Reason: Order 4 mg PO DAILY PRN topiramate Discontinued Reason: Order 100 mg PO BID Coding Level of Care Code Est Pt Level 4 (44959) Diagnoses Migraine without status migrainosus, not intractable, unspecified migraine type G43.909 Migraine type: unspecified Status migrainosus presence: without status migrainosus Intractability: not intractable
== END 2025-01-05 14:40 | disposition home or self-care (01) ==
LOC: HO.HSM 14:11
PROVIDERS: PCP Internal Medicine; Referring Provider Internal Medicine; Visit Provider Registered Nurse
DX: G43.909 Migraine, unspecified, not intractable, without status migrainosus (principal)
CPT/HCPCS: 99214

== ENCOUNTER → 2025-01-05 14:10 | Outpatient (BNVA) | payer MEDICARE, MEDICAID, SELFPAY | PROVIDERS: PCP Internal Medicine; Referring Provider Internal Medicine; Visit Provider Registered Nurse | DX: G43.909 Migraine, unspecified, not intractable, without status migrainosus (principal); Z79.899 Other long term (current) drug therapy | CPT/HCPCS: 99212 ==

== ENCOUNTER 2025-04-07 09:41 | Outpatient (REF) | payer MEDICARE, MEDICAID, SELFPAY ==
[2025-04-07 10:11] LABS: MANUAL DIFF FLAG NO
[2025-04-07 10:50] LABS: Hematocrit 37.7 % (37.0-47.0); Hemoglobin 12.1 g/dl (12.0-16.0); Imm Gran Abs Auto 0.01 X10*3/uL (0.00-0.03); Imm Gran Pct Auto 0.2 % (0.0-0.4); Lymphocytes Absolute Auto 2.1 X10*3/uL (1.2-4.9); Mean Corpuscular HGB Conc 32.1 g/dl (31.0-35.0); Mean Corpuscular Hemoglobin 28.4 pg (27.0-33.0); Mean Corpuscular Volume 88.5 fL (80.0-98.0); NRBC Abs Auto 0.000 X10*3/uL (0.0-0.012); NRBC Pct Auto 0.0 /100WBC (0.0-0.2); Platelet Count 180 X10*3/uL (160-400); Red Blood Count 4.26 X10*6/uL (4.20-5.50); White Blood Count 5.2 X10*3/uL (4.8-10.8)
[2025-04-07 11:46] LABS: Alanine Aminotransferase 15 U/L (0-31); Albumin Level 4.5 g/dL (3.5-5.0); Alkaline Phosphatase 144 U/L (39-117); Anion Gap 11 (12-20); Aspartate Amino Transferase 20 U/L (5-31); Blood Urea Nitrogen 14 mg/dL (9-16); Calcium 9.4 mg/dL (8.4-10.2); Carbon Dioxide 22 mmol/L (22-29); Chloride 114 mmol/L (96-108); Cholesterol 201 mg/dL (<200); Estimated Glomerular Filt Rate > 60; HDL Cholesterol 80 mg/dL (>40); Potassium 4.2 mmol/L (3.3-5.1); Sodium 143 mmol/L (135-145); Total Protein 6.8 g/dL (6.5-8.0); Triglycerides 52 mg/dL (<150)
[2025-04-07 11:48] LABS: Thyroid Stimulating Hormone 1.27 uIU/mL (0.32-4.0)
== END 2025-04-07 09:42 | disposition home or self-care (01) ==
LOC: HO.LAB 09:41
PROVIDERS: PCP Internal Medicine; Visit Provider Internal Medicine
DX: E06.3 Autoimmune thyroiditis (principal); E55.9 Vitamin D deficiency, unspecified; D64.9 Anemia, unspecified; G43.909 Migraine, unspecified, not intractable, without status migrainosus; E78.5 Hyperlipidemia, unspecified
CPT/HCPCS: 36415; 80053; 80061; 82306; 84443; 85025

== ENCOUNTER 2025-04-12 09:33 | Outpatient (AMB) | payer MEDICARE, MEDICAID, SELFPAY ==
[2025-04-12 09:46] VITALS: BP 140/60; PULSE 74; RESP 18; TEMP 36.2; O2SAT 94; BMI 27.8
--- NOTE | 2025-04-12 09:46 | A.OFFPC_ITS ---
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: No Accompanied by: Self / Same As Patient Allergies duloxetine Adverse Reaction (Intermediate, Verified 04/12/25 10:05) diarrhea,vomiting gabapentin Adverse Reaction (Intermediate, Verified 04/12/25 10:05) dizziness Medication List - Last Reconciled 04/12/25 by Kathrine Zeng MD baclofen 10 mg PO BID duloxetine 30 mg PO BID ibuprofen 600 mg PO Q8H PRN levothyroxine 112 mcg PO DAILY 90 days naproxen 500 mg PO Q12H PRN 90 days omeprazole 40 mg PO DAILY 90 days ondansetron 4 mg PO DAILY PRN 30 days sumatriptan succinate take 1 tab at onset of headache; if no relief may repeat 1 tab after at least 2 hrs; PO 30 days topiramate 100 mg PO BID 90 days tramadol 50 mg PO DAILY 30 days Tobacco use date assessed: 04/12/25 Dental Screening Dental Screen Date: 04/12/25 Did you have a dental visit in the last 12 months?: Yes Did you have a dental problem in the last 6 months where you did not have access to dental care?: No Was dental information given to patient?: Patient has dentist HPI HPI Comments History of Present Illness Details The patient is a 60-year-old female presenting for an annual wellness visit and management of chronic conditions. The patient has a history of Vitamin D deficiency, which has been associated with fatigue and musculoskeletal pain. Her Vitamin D levels were noted to be slightly low, and supplementation was recommended. The patient also has hyperlipidemia, with cholesterol levels slightly elevated but not requiring pharmacological intervention at this time. She has been diagnosed with fibromyalgia, for which pregabalin was discussed as a potential treatment option. The medication may cause drowsiness, and insurance approval is pending. The patient experiences migraines, for which she is currently taking sumatriptan and topiramate. She has hypothyroidism, managed with levothyroxine 112 mcg daily. Preventative care measures include a mammogram performed in July and a recommendation for colon cancer screening using a stool test, as previous Cologuard tests were not completed. Additionally, a Tdap vaccination is due, as the last one was administered over ten years ago. - Mammography completed in July - Recommendation for colon cancer screen ing with stool test - Tdap vaccination due [facility] Medical History (Updated 04/12/25 @ 11:07 by Kathrine Zeng MD) Back pain Graves disease Arthritis Insomnia Mild recurrent major depression Thoracic spine pain Left shoulder pain Neck pain Migraines Right foot pain GERD (gastroesophageal reflux disease) Lumbar degenerative disc disease Autoimmune thyroiditis Surgical History History of laminectomy History of tubal ligation History of tonsillectomy Family History Father Heart problem CVD (cardiovascular disease) Mother Heart problem Acute kidney failure Hypertension CVD (cardiovascular disease) Sister Hypertension Brother Heart problem Social History Housing: Apartment Alcohol intake: current Alcohol intake frequency: holidays/special occasions only Alcohol type: beer Patient Tobacco Use Status: Current everyday Tobacco user Tobacco use type: Cigarette Cigarettes Per Day: 4 e-Cigarette/Vaping Use: Never Used Second Hand Smoke Exposure: No service: No Current occupational status: disabled Cognitive needs: No Hearing needs: No Vision needs: No Questionnaire Thrive Questionnaire Date Thrive assessed: 04/09/25 I am a: Patient What is your living situation today?: I have a steady place to live Within the past 12 months, did you worry whether your food would run out before you got money to buy more?: Sometimes True Do you have trouble paying for medicines?: No Do you have trouble getting transportation to medical appointments?: No Do you have trouble paying your heating and electricity bill?: Yes Do you have trouble with day-to-day activities such as bathing, preparing meals, shopping, managing finances, etc.?: No Are you currently unemployed and looking for a job?: No Are you interested in more education?: No Please select the resources that you would like help with: None Currently or been in a relationship where the following occur: No concerns reported THRIVE Score: 2 AUDIT C Alcohol Use Questionnaire (AUDIT-C) 1. How often do you have a drink containing alcohol?: Never 3. How often do you have six or more drinks on one occasion?: Never Total Score: 0 Score Reviewed/Action Taken: No VICENTE-7 AMB Questionnaire VICENTE-7 Date VICENTE - 7 assessed: 10/06/24 Feeling nervous, anxious, or on edge: 0 = Not at all Not being able to stop or control worryin = Several days Worrying too much about different things: 1 = Several days Trouble relaxin = Not at all Being so restless that it is hard to sit still: 0 = Not at all Becoming easily annoyed or irritable: 0 = Not at all Feeling afraid as if something awful might happen: 0 = Not at all Total VICENTE-7 score (0-4 normal; 5-9 mild; 10-14 moderate; 15-21 severe): 2 Source: Developed by Drs. David Perry, Lissett Long, Dayo Salgado and colleagues, with an educational maurice from [employer]. VICENTE-7 Assessment Billing VICENTE-7 Assessment Tool: VICENTE-7 Assessment 61774 Review of Systems Const All systems reviewed & are unremarkable except as noted in HPI and below Card Denies chest pain at rest, Denies chest pain with activity, Denies edema, Denies irregular heart rhythm, Denies claudication, Denies dyspnea, Denies dyspnea on exertion, Denies orthopnea, Denies paroxysmal nocturnal dyspnea and Denies slow heart rate Resp Denies cough, Denies dyspnea and Denies dyspnea on exertion Neuro Denies lack of coordination Physical exam (Primary Care) Vital Signs: Last Vital Signs Temp 97.1 F 04/12/25 09:46 Pulse 74 04/12/25 09:46 Resp 18 04/12/25 09:46 BP 134/60 04/12/25 10:04 Pulse Ox 94 04/12/25 09:46 Oxygen Delivery Method Room Air 04/12/25 09:46 BMI result Body Mass Index 27.8 Tobacco/Smoking Status: Tobacco use Status Tobacco use date assessed 04/12/25 04/12/25 09:57 Patient Tobacco Use Status Current everyday Tobacco 04/12/25 09:57 Tobacco use type Cigarette 04/12/25 09:57 e-Cigarette/Vaping Use Never Used 04/12/25 09:57 Thrive Assessment: Date of Thrive Assessment Date Thrive assessed 04/09/25 04/12/25 09:57 Currently or been in a relationship where the following occur: No concerns reported [facility] Head: Yes normal to inspection, Yes normocephalic and Yes atraumatic Ears: external ears normal Eyes General: appearance normal, both eyes and all related structures Eyelids: Yes eyelids normal Conjunctivae: conjunctivae normal Neck Neck: Yes normal visual inspection and Yes supple Resp Effort & Inspection: normal respiratory effort Auscultation: clear to auscultation bilaterally Cardio Jugular venous distension: no JVD Rate: regular rate Rhythm: regular rhythm Heart sounds: S1 normal heart sound present and S2 normal heart sound present GI Inspection: Yes normal to inspection Palpation (GI): Soft to palpation and nontender Auscultation: normal bowel sounds Skin General skin exam: no rashes or lesions noted Neuro General: no focal motor deficits Extrem General: Yes full ROM Psych Appearance: grossly normal Immunizations Boostrix Tdap 2.5 Lf unit-8 mcg-5 Lf/0.5 mL intramuscular syringe Performing Provider: Kathrine Zeng MD [facility] [facility] Administered by: LASHA Vela on 04/12/25 10:26 Dose Route Admin Location Dispensed Lot Number Expiration Date [facility] Cooker Pie Filling 0.5 mL IM Left Deltoid 0.5 mL [id number] 04/19/27 52851-711-94 [employer] Total Dispensed Waste 0.5 mL 0 % VIS Given Date VIS Provided VIS Publication Date 04/12/25 Single Vaccine 21 Eligibility Eligibility Date Funding Source Not [facility] Eligible 04/12/25 Private Coding Level of Care Code Est Pt Level 3 (37033) Est Pt Prev Care 40-64y(17100) Diagnoses Physical exam Z00.00 Fibromyalgia M79.7 Mild recurrent major depression F33.0 Hypovitaminosis D E55.9 Additional Codes VICENTE-7 Assessment Billing - VICENTE-7 Assessment Tool: VICENTE-7 Assessment 46697 ([id number]) Time Spent (min) 35 Assessment & Plan Assessment & Plan (1) Physical exam: Code(s): Z00.00 - Encounter for general adult medical examination without abnormal findings Category: Medical (2) Fibromyalgia: Code(s): M79.7 - Fibromyalgia Category: Medical (3) Mild recurrent major depression: Code(s): F33.0 - Major depressive disorder, recurrent, mild Category: Medical (4) Hypovitaminosis D: Code(s): E55.9 - Vitamin D deficiency, unspecified Category: Medical Plan Plan 1. Encounter for general adult medical examination without abnormal findings Z00.00 A recommendation was made for colon cancer screening using a stool test, as previous Cologuard tests were not completed. The patient completed a mammogram in July as part of routine preventative care. A Tdap vaccination is due, as the last one was administered over ten years ago. 2. Vitamin D deficiency, unspecified E55.9 The patient has Vitamin D deficiency, which contributes to fatigue and musculos keletal pain. Vitamin D supplementation was recommended to address the deficiency. 3. Fibromyalgia M79.7 Pregabalin was discussed as a treatment option for fibromyalgia, with a note that it may cause drowsiness. Insurance approval for the medication is pending. Orders: Orders Thyroid Stimulating Hormone 6 Months E06.3 - Autoimmune thyroiditis TDaP Immunization Today Z23 - Encounter for immunization Referrals Cologuard Test Z12.11 - Encounter for screening for malignant neoplasm of colon, Z12.12 - Encounter for screening for malignant neoplasm of rectum Medications: New cholecalciferol (vitamin D3) 25 mcg PO DAILY 90 caps 1RF 90 days pregabalin 75 mg PO BID 60 caps 0RF 30 days Changed From baclofen 10 mg PO BID To baclofen 10 mg PO Q8H 90 tabs 0RF 30 days Refilled tramadol 50 mg PO DAILY 30 tabs 0RF 30 days Discontinued naproxen Discontinued Reason: Patient Completed Course 500 mg PO Q12H 90 days PRN 180 tabs 0RF pain
[2025-04-12 10:04] VITALS: BP 134/60
== END 2025-04-12 10:30 | disposition home or self-care (01) ==
LOC: HO.HMCH 09:34
PROVIDERS: PCP Internal Medicine; Visit Provider Internal Medicine
DX: Z00.00 Encounter for general adult medical examination without abnormal findings (principal); M79.7 Fibromyalgia; F33.0 Major depressive disorder, recurrent, mild; E55.9 Vitamin D deficiency, unspecified; Z23 Encounter for immunization

== ENCOUNTER → 2025-04-12 09:33 | Outpatient (BNVA) | payer MEDICARE, MEDICAID, SELFPAY | PROVIDERS: PCP Internal Medicine; Visit Provider Internal Medicine | DX: Z00.00 Encounter for general adult medical examination without abnormal findings (principal); Z23 Encounter for immunization; M79.7 Fibromyalgia; F33.0 Major depressive disorder, recurrent, mild; E55.9 Vitamin D deficiency, unspecified; E03.9 Hypothyroidism, unspecified; G43.909 Migraine, unspecified, not intractable, without status migrainosus; E78.5 Hyperlipidemia, unspecified; Z79.899 Other long term (current) drug therapy | CPT/HCPCS: 90471; 90715; 96127; 99212; 99396 ==